=== PATIENT | female | born 1945 | race Caucasian/White ===

== ENCOUNTER 2019-07-30 10:17 | Emergency (ER) | payer MEDICARE, OTHER ==
[2019-07-30 10:25] VITALS: BP 122/62; PULSE 87; TEMP 98.2; BMI 33.6
--- NOTE | 2019-07-30 11:32 | PDOC ---
History of Present Illness - General Chief Complaint: Pain Stated Complaint: LT. LEG PAIN Time Seen by Provider: 07/30/19 10:31 - History of Present Illness Initial Comments: 07/30/19 11:23 CHIEF COMPLAINT: left hip pain HISTORY OF PRESENT ILLNESS: 74 yo F with hx of asthma and osteoarthritis presents to [facility] with sudden onset left hip pain since last night. She reports she woke up with hip pain and after sitting for long periods of time it is more painful to get up. She denies any recent trauma or injury, denies any fever, chills, body aches, or any new other symptoms. No recent travel or sick contacts. PAST MEDICAL HISTORY: Denies past medical history FAMILY HISTORY: Denies SOCIAL HISTORY: Denies tobacco, alcohol, illicit drug use. SURGICAL HISTORY: Denies ALLERGIES: No known drug allergies REVIEW OF SYSTEMS General/Constitutional: Denies fever or chills. Denies weakness, weight change. HEENT: Denies change in vision. Denies ear pain or discharge. Denies sore throat. Cardiovascular: Denies chest pain or shortness of breath. Respiratory: Denies cough, wheezing, or hemoptysis. Gastrointestinal: Denies nausea, vomiting, diarrhea or constipation. Denies rectal bleeding. Genitourinary: Denies dysuria, frequency, or change in urination. Musculoskeletal: Left hip pain. Skin and breasts: Denies rash or easy bruising. Neurologic: Denies headache, vertigo, loss of consciousness, or loss of sensation. Psychiatric: Denies depression or anxiety. PHYSICAL EXAM General Appearance: Well-appearing, appropriately dressed. No apparent distress , no intoxication. HEENT: EOMI, PERRLA, normal ENT inspection, normal voice, TMs normal, pharynx normal. No conjunctival pallor. No photophobia, scleral icterus. Neck: Supple. Trachea midline. No tenderness, rigidity, carotid bruit, stridor , lymphadenopathy, or thyromegaly. Respiratory/Chest: Lungs CTAB. No shortness of breath, chest tenderness, respiratory distress, accessory muscle use. No crackles, rales, rhonchi, stridor , wheezing, dullness Cardiovascular: RRR. S1, S2. No JVD, murmur, bradycardia, tachycardia. Vascular Pulses: Dorsalis-Pedis (R): 2+, Dorsalis-Pedis (L): 2+ Gastrointestinal/Abdominal: Normal bowel sounds. Abdomen soft, non-distended. No tenderness or rebound tenderness. No organomegaly, pulsatile mass, guarding , hernia, hepatomegaly, splenomegaly. Lymphatic: No adenopathy, tenderness. Musculoskeletal/Extremities: Full ROM to L hip and knee, no tenderness on palpation to L lower extremitie or hip. Normal inspection. FROM of all extremities, normal capillary refill. Pelvis Stable. No CVA tenderness. No tenderness to extremities, pedal edema, swelling, erythema or deformity. Integumentary: Appropriate color, dry, warm. No cyanosis, erythema, jaundice or rash Neurologic: lace roller II-XII intact. Fully oriented, alert. Appropriate mood/affect. Motor strength 5/5. No appreciable EOM palsy, facial droop or sensory deficit. Past History - Past Medical History Allergies/Adverse Reactions: Allergies Allergy/AdvReac Type Severity Reaction Status Date / Time No Known Drug Allergies Allergy Verified 07/30/19 10:19 Home Medications: Ambulatory Orders Albuterol Sulfate Inhaler - [Ventolin HFA Inhaler -] 1 - 2 inh PO Q4H PRN Simvastatin [Zocor] 10 mg PO HS 01/22/14 Sitagliptin Phosphate [Januvia] 100 mg PO DAILY 01/22/14 Albuterol Sulfate [Proair Hfa -] 1 - 2 inh PO BID PRN 07/31/14 Ferrous Gluconate [Iron] 325 mg PO DAILY 07/31/14 Meloxicam [Mobic] 15 mg PO DAILY 07/31/14 Prednisone [Deltasone] 20 mg PO DAILY #5 tablet 07/30/19 Asthma: Yes COPD: No Diabetes: Yes - Psycho Social/Smoking Cessation Hx Smoking History: Never smoked Have you smoked in the past 12 months: No Hx Alcohol Use: No Drug/Substance Use Hx: No *Physical Exam - Vital Signs Last Vital Signs Temp Pulse Resp BP Pulse Ox 98.2 F 87 16 122/62 98 07/30/19 10:20 07/30/19 10:20 07/30/19 10:20 07/30/19 10:20 07/30/19 10:20 ED Treatment Course - RADIOLOGY Radiology Studies Ordered: Category Date Time Status HIP & PELVIS-LEFT [RAD] Stat Radiology 07/30/19 10:35 Completed Medical Decision Making - Medical Decision Making 07/30/19 11:32 74 yo F with hx of osteoarthritis presents to [facility] with sudden onset left hip pain since last night. -hip x-ray x-ray negative for acute pathology. -prednisone 20 mg f/u with ortho Discharge - Discharge Information Problems reviewed: Yes Clinical Impression/Diagnosis: Osteoarthritis Qualifiers: Osteoarthritis location: hip Osteoarthritis type: unspecified Laterality: left Qualified Code(s): M16.12 - Unilateral primary osteoarthritis, left hip Condition: Stable Disposition: HOME - Admission No - Additional Discharge Information Prescriptions: Prednisone [Deltasone] 20 mg PO DAILY #5 tablet - Follow up/Referral Referrals: Mau Heard [Primary Care Provider] - - Patient Discharge Instructions Patient Printed Discharge Instructions: DI for Osteoarthritis - Post Discharge Activity
[2019-07-30] MEDS ORDERED: predniSONE 20 MG TABLET (UD) PO ONE (11:41)
[2019-07-30] MEDS ORDERED: predniSONE 20 MG TABLET (UD) ONE (11:42)
== END 2019-07-30 12:06 | disposition home or self-care (01) ==
LOC: JERFT 10:17
DX: M16.12 Unilateral primary osteoarthritis, left hip (principal); J45.909 Unspecified asthma, uncomplicated; E11.9 Type 2 diabetes mellitus without complications; Z79.84 Long term (current) use of oral hypoglycemic drugs
CPT/HCPCS: 73523-TC-FY; 99281-25

== ENCOUNTER 2020-08-06 18:16 | Inpatient (IN) | payer OTHER ==
[2020-08-06] MEDS ORDERED: LACTATED RINGERS SOLUTION 1000 ML INFUS.BAG IV ONE ×2 (20:28→23:44)
[2020-08-06 21:03] LABS: BASO % 0.2 % (0-2.0); HEMATOCRIT 43.3 % (32.4-45.2); HEMOGLOBIN 14.3 GM/dL (10.7-15.3); LYMPH % 12.5 % (8-40); MCHC 33.1 g/dl (32.0-36.0); MEAN CELL VOLUME 81.6 fl (80-96); MEAN PLT VOLUME 9.6 fl (7.5-11.1); MONO % 5.5 % (3.8-10.2); NEUT % 81.8 % (42.8-82.8); PLATELET COUNT 189 K/MM3 (134-434); RBC 5.31 M/mm3 (3.60-5.2); RDW 15.3 % (11.6-15.6); WHITE BLOOD COUNT 6.6 K/mm3 (4.0-10.0)
[2020-08-06 21:13] LABS: INR 1.09 (0.83-1.09); PROTHROMBIN TIME (PATIENT) 13.4 SEC (9.7-13.0)
[2020-08-06 21:16] LABS: ACTIVATED PTT 28.9 SECONDS (25.2-36.5)
[2020-08-06 21:26] LABS: CHLORIDE 102 mmol/L (98-107); SODIUM 135 mmol/L (136-145)
[2020-08-06 21:29] LABS: ANION GAP 8 MMOL/L (8-16); BLOOD UREA NITROGEN 20.6 mg/dL (7-18); CALCIUM 8.4 mg/dL (8.5-10.1); CO2 26 mmol/L (21-32)
[2020-08-06 21:30] LABS: GLUCOSE,RANDOM 127 mg/dL (74-106)
[2020-08-06 21:32] LABS: BILIRUBIN,DIRECT 0.1 mg/dL (0.0-0.2); CREATININE 0.9 mg/dL (0.55-1.3); SGOT/AST 34 U/L (15-37); SGPT/ALT 29 U/L (13-61)
[2020-08-06 21:34] LABS: BILIRUBIN,TOTAL 0.3 mg/dL (0.2-1); TOT PROT 7.1 g/dl (6.4-8.2)
[2020-08-06 21:35] LABS: ALK PHOS 45 U/L (45-117)
[2020-08-06] MEDS ORDERED: DEXAMETHASONE SOD PHOSPHATE 10 MG/1 ML VIAL IVPUSH ONE (21:38)
[2020-08-06] MEDS ORDERED: DEXAMETHASONE SOD PHOSPHATE 4 MG/1 ML VIAL ONE (21:54)
[2020-08-06 22:25] LABS: LDH 306 U/L (84-246)
[2020-08-06] MEDS ORDERED: ACETAMINOPHEN 1000 MG/100 ML BAG IVPB ONE (23:43)
[2020-08-06] MEDS ORDERED: ACETAMINOPHEN INJECTION 100 ML IVPB ONE (23:47)
[2020-08-07] MEDS ORDERED: ACETAMINOPHEN 325 MG TABLET (FP) PO PRN (00:40)
[2020-08-07] MEDS ORDERED: CEFTRIAXONE 1,000 MG in DEXTROSE 5%-WATER - 50 ML IVPB ONE (00:48)
[2020-08-07] MEDS ORDERED: AZITHROMYCIN IVPB 500 MG/250 ML BAG IVPB ONE (01:19)
[2020-08-07] MEDS ORDERED: CEFTRIAXONE 1 GM/50 ML BAG ONE (01:19)
[2020-08-07] MEDS: CEFTRIAXONE 1 GM in DEXTROSE 5%-WATER - 50 ML IVPB SCH ×2 (01:30→10:19)
[2020-08-07] MEDS: AZITHROMYCIN IVPB 500 MG/250 ML BAG IVPB SCH ×2 (01:47→10:19)
[2020-08-07] MEDS: INSULIN SLIDING SCALE (NOVOLOG) 1 VIAL SQ SCH ×4 (06:55→21:23)
[2020-08-07 07:04] LABS: BASO % 0.2 % (0-2.0); HEMOGLOBIN 13.5 GM/dL (10.7-15.3); LYMPH % 14.2 % (8-40); MCH 26.2 pg (25.7-33.7); MCHC 32.3 g/dl (32.0-36.0); MEAN CELL VOLUME 81.2 fl (80-96); MONO % 4.2 % (3.8-10.2); NEUT % 81.4 % (42.8-82.8); PLATELET COUNT 169 K/MM3 (134-434); RBC 5.16 M/mm3 (3.60-5.2); RDW 15.3 % (11.6-15.6); WHITE BLOOD COUNT 6.5 K/mm3 (4.0-10.0)
[2020-08-07 07:22] LABS: CALCIUM 8.5 mg/dL (8.5-10.1)
[2020-08-07 07:23] LABS: ALBUMIN 2.6 g/dl (3.4-5.0); BLOOD UREA NITROGEN 18.8 mg/dL (7-18); MAGNESIUM 2.1 mg/dL (1.8-2.4)
[2020-08-07 07:25] LABS: CREATININE 0.8 mg/dL (0.55-1.3)
[2020-08-07 07:26] LABS: PHOSPHOROUS 4.4 mg/dL (2.5-4.9)
[2020-08-07 07:27] LABS: BILIRUBIN,TOTAL 0.3 mg/dL (0.2-1); TOT PROT 6.6 g/dl (6.4-8.2)
[2020-08-07 08:53] LABS: EPI CELLS 10 /uL (0-25.1); HYALINE CASTS 2 /uL (0-3.1); PH,URINE 5.5 (5.0-8.0); URINE APPEARANCE CLOUDY; URINE BACTERIA 42 /uL (0-1359); URINE BILIRUBIN NEGATIVE (NEGATIVE); URINE COLOR YELLOW; URINE GLUCOSE (UA) NEGATIVE (NEGATIVE); URINE KETONE NEGATIVE (NEGATIVE); URINE LEUK ESTERASE NEGATIVE (NEGATIVE); URINE NITRITE NEGATIVE (NEGATIVE); URINE PROTEIN 1+ (NEGATIVE); URINE RBC 9 /uL (0-23.9); URINE UROBILINOGEN 0.2 mg/dL (0.2-1.0); URINE WBC 6 /uL (0-25.8)
[2020-08-07] MEDS ORDERED: ASCORBIC ACID 500 MG TABLET (FP) PO SCH (10:00)
[2020-08-07] MEDS ORDERED: ENOXAPARIN NA (PORCINE) 40 MG/0.4 ML DISP.SYRIN SQ SCH (10:00)
[2020-08-07] MEDS ORDERED: DEXAMETHASONE SOD PHOSPHATE 4 MG/1 ML VIAL IVPUSH SCH (10:00)
[2020-08-07] MEDS: ZINC SULFATE 220 MG CAPSULE (FP) PO SCH (10:19)
[2020-08-07] MEDS: ENOXAPARIN NA (PORCINE) 80 MG/0.8 ML DISP.SYRIN SQ SCH ×2 (10:20→21:19)
[2020-08-07] MEDS: ASCORBIC ACID 500 MG TABLET (FP) PO SCH ×2 (10:20→21:18)
[2020-08-07] MEDS: CHOLECALCIFEROL (VIT D3) 1,000 UNIT (25 MCG) TABLET PO SCH (10:20)
[2020-08-07] MEDS: DEXAMETHASONE SOD PHOSPHATE 4 MG/1 ML VIAL IVPUSH SCH (10:20)
[2020-08-07] MEDS ORDERED: ALBUTEROL SO4 HFA INHALER IH PRN (11:00)
[2020-08-07] MEDS: RAMIPRIL 5 MG CAPSULE PO SCH (12:05)
[2020-08-07] MEDS: ASPIRIN 81 MG CHEWABLE TABLETS PO SCH (12:06)
[2020-08-07] MEDS: ATORVASTATIN CA 10 MG TABLET (FP) PO SCH (21:18)
[2020-08-07] MEDS: ACETAMINOPHEN 325 MG TABLET (FP) PO PRN (22:10)
[2020-08-07] MEDS: ALBUTEROL SO4 HFA INHALER IH PRN (22:17)
[2020-08-08] MEDS: INSULIN SLIDING SCALE (NOVOLOG) 1 VIAL SQ SCH ×4 (06:40→22:11)
[2020-08-08 07:30] LABS: HEMATOCRIT 44.4 % (32.4-45.2); HEMOGLOBIN 14.4 GM/dL (10.7-15.3); MCH 26.6 pg (25.7-33.7); MCHC 32.5 g/dl (32.0-36.0); MEAN CELL VOLUME 81.9 fl (80-96); MEAN PLT VOLUME 9.3 fl (7.5-11.1); PLATELET COUNT 217 K/MM3 (134-434); RBC 5.42 M/mm3 (3.60-5.2); RDW 15.6 % (11.6-15.6)
[2020-08-08 08:03] LABS: BLOOD UREA NITROGEN 20.5 mg/dL (7-18)
[2020-08-08 08:06] LABS: CREATININE 0.7 mg/dL (0.55-1.3); PHOSPHOROUS 3.3 mg/dL (2.5-4.9)
[2020-08-08] MEDS ORDERED: cefTRIAXone SODIUM 1 GM VIAL ONE (08:47)
[2020-08-08] MEDS ORDERED: DEXTROSE 5%-WATER - 50 ML IVPB ONE (08:47)
[2020-08-08] MEDS: CEFTRIAXONE 1 GM in DEXTROSE 5%-WATER - 50 ML IVPB SCH ×2 (09:27→09:56)
[2020-08-08] MEDS: ASPIRIN 81 MG CHEWABLE TABLETS PO SCH (09:27)
[2020-08-08] MEDS: ENOXAPARIN NA (PORCINE) 80 MG/0.8 ML DISP.SYRIN SQ SCH ×2 (09:27→22:11)
[2020-08-08] MEDS: DEXAMETHASONE SOD PHOSPHATE 4 MG/1 ML VIAL IVPUSH SCH (09:27)
[2020-08-08] MEDS: RAMIPRIL 5 MG CAPSULE PO SCH (09:27)
[2020-08-08] MEDS: ASCORBIC ACID 500 MG TABLET (FP) PO SCH ×2 (09:27→22:11)
[2020-08-08] MEDS: ZINC SULFATE 220 MG CAPSULE (FP) PO SCH (09:27)
[2020-08-08] MEDS: AZITHROMYCIN IVPB 500 MG/250 ML BAG IVPB SCH ×2 (09:28→09:56)
[2020-08-08] MEDS: CHOLECALCIFEROL (VIT D3) 1,000 UNIT (25 MCG) TABLET PO SCH (09:28)
[2020-08-08] MEDS ORDERED: INSULIN (NOVOLOG) ASPART 100 UNITS/ML 10ML VIAL ONE (11:17)
[2020-08-08 12:37] LABS: PLATELET ESTIMATE NORMAL
[2020-08-08] MEDS ORDERED: REMDESIVIR 200 MG in SODIUM CHLORIDE 210 ML IVPB ONE (15:00)
[2020-08-08] MEDS: ACETAMINOPHEN 325 MG TABLET (FP) PO PRN (22:11)
[2020-08-08] MEDS: ATORVASTATIN CA 10 MG TABLET (FP) PO SCH (22:43)
[2020-08-09] MEDS: INSULIN SLIDING SCALE (NOVOLOG) 1 VIAL SQ SCH ×4 (06:39→23:08)
[2020-08-09 06:58] LABS: BASO % 0.1 % (0-2.0); HEMOGLOBIN 13.4 GM/dL (10.7-15.3); LYMPH % 17.3 % (8-40); MCH 26.5 pg (25.7-33.7); MCHC 32.8 g/dl (32.0-36.0); MEAN CELL VOLUME 80.8 fl (80-96); MEAN PLT VOLUME 8.9 fl (7.5-11.1); NEUT % 77.6 % (42.8-82.8); PLATELET COUNT 223 K/MM3 (134-434); RBC 5.07 M/mm3 (3.60-5.2); RDW 15.6 % (11.6-15.6); WHITE BLOOD COUNT 11.3 K/mm3 (4.0-10.0)
[2020-08-09 07:34] LABS: BLOOD UREA NITROGEN 16.8 mg/dL (7-18)
[2020-08-09 07:35] LABS: CALCIUM 8.9 mg/dL (8.5-10.1)
[2020-08-09 07:36] LABS: ALBUMIN 2.6 g/dl (3.4-5.0)
[2020-08-09 07:39] LABS: BILIRUBIN,TOTAL 0.4 mg/dL (0.2-1); CREATININE 0.6 mg/dL (0.55-1.3); TOT PROT 6.7 g/dl (6.4-8.2)
[2020-08-09] MEDS: ZINC SULFATE 220 MG CAPSULE (FP) PO SCH (09:50)
[2020-08-09] MEDS: RAMIPRIL 5 MG CAPSULE PO SCH (09:50)
[2020-08-09] MEDS: ENOXAPARIN NA (PORCINE) 80 MG/0.8 ML DISP.SYRIN SQ SCH ×2 (09:51→23:08)
[2020-08-09] MEDS: DEXAMETHASONE SOD PHOSPHATE 4 MG/1 ML VIAL IVPUSH SCH (09:51)
[2020-08-09] MEDS: ASPIRIN 81 MG CHEWABLE TABLETS PO SCH (09:51)
[2020-08-09] MEDS: ASCORBIC ACID 500 MG TABLET (FP) PO SCH ×2 (09:52→23:09)
[2020-08-09] MEDS: CHOLECALCIFEROL (VIT D3) 1,000 UNIT (25 MCG) TABLET PO SCH (09:52)
[2020-08-09] MEDS ORDERED: REMDESIVIR 100 MG in SODIUM CHLORIDE 230 ML IVPB SCH (14:44)
[2020-08-09] MEDS: REMDESIVIR 100 MG in SODIUM CHLORIDE 230 ML IVPB SCH (16:43)
[2020-08-09] MEDS: ATORVASTATIN CA 10 MG TABLET (FP) PO SCH (23:08)
[2020-08-09] MEDS: ACETAMINOPHEN 325 MG TABLET (FP) PO PRN (23:09)
[2020-08-10] MEDS: INSULIN SLIDING SCALE (NOVOLOG) 1 VIAL SQ SCH ×4 (06:03→22:05)
[2020-08-10 07:15] LABS: BASO % 0.1 % (0-2.0); HEMATOCRIT 41.6 % (32.4-45.2); HEMOGLOBIN 13.7 GM/dL (10.7-15.3); LYMPH % 12.3 % (8-40); MCH 26.4 pg (25.7-33.7); MCHC 32.9 g/dl (32.0-36.0); MEAN CELL VOLUME 80.3 fl (80-96); MEAN PLT VOLUME 8.7 fl (7.5-11.1); MONO % 8.7 % (3.8-10.2); NEUT % 78.9 % (42.8-82.8); PLATELET COUNT 247 K/MM3 (134-434); RBC 5.18 M/mm3 (3.60-5.2); RDW 15.3 % (11.6-15.6)
[2020-08-10 08:01] LABS: CALCIUM 8.6 mg/dL (8.5-10.1)
[2020-08-10 08:02] LABS: ALBUMIN 2.5 g/dl (3.4-5.0); BLOOD UREA NITROGEN 21.2 mg/dL (7-18)
[2020-08-10 08:03] LABS: CREATININE 0.5 mg/dL (0.55-1.3)
[2020-08-10 08:04] LABS: BILIRUBIN,TOTAL 0.4 mg/dL (0.2-1); TOT PROT 6.6 g/dl (6.4-8.2)
[2020-08-10] MEDS: RAMIPRIL 5 MG CAPSULE PO SCH (11:00)
[2020-08-10] MEDS: DEXAMETHASONE SOD PHOSPHATE 4 MG/1 ML VIAL IVPUSH SCH (11:00)
[2020-08-10] MEDS: ZINC SULFATE 220 MG CAPSULE (FP) PO SCH (11:00)
[2020-08-10] MEDS: ASCORBIC ACID 500 MG TABLET (FP) PO SCH ×2 (11:01→21:56)
[2020-08-10] MEDS: ENOXAPARIN NA (PORCINE) 80 MG/0.8 ML DISP.SYRIN SQ SCH ×2 (11:01→21:56)
[2020-08-10] MEDS: ASPIRIN 81 MG CHEWABLE TABLETS PO SCH (11:01)
[2020-08-10] MEDS: CHOLECALCIFEROL (VIT D3) 1,000 UNIT (25 MCG) TABLET PO SCH (11:01)
[2020-08-10] MEDS: PANTOPRAZOLE 40 MG TABLET PO SCH (14:23)
[2020-08-10] MEDS: REMDESIVIR 100 MG in SODIUM CHLORIDE 230 ML IVPB SCH (16:54)
[2020-08-10] MEDS: ATORVASTATIN CA 10 MG TABLET (FP) PO SCH (21:56)
[2020-08-11] MEDS: INSULIN SLIDING SCALE (NOVOLOG) 1 VIAL SQ SCH ×4 (06:35→22:32)
[2020-08-11] MEDS ORDERED: INSULIN (NOVOLOG) ASPART 100 UNITS/ML 10ML VIAL ONE (07:14)
[2020-08-11] MEDS: PANTOPRAZOLE 40 MG TABLET PO SCH (10:18)
[2020-08-11] MEDS: RAMIPRIL 5 MG CAPSULE PO SCH (10:18)
[2020-08-11] MEDS: ZINC SULFATE 220 MG CAPSULE (FP) PO SCH (10:18)
[2020-08-11] MEDS: DEXAMETHASONE SOD PHOSPHATE 4 MG/1 ML VIAL IVPUSH SCH (10:18)
[2020-08-11] MEDS: ENOXAPARIN NA (PORCINE) 80 MG/0.8 ML DISP.SYRIN SQ SCH ×2 (10:19→22:15)
[2020-08-11] MEDS: ASCORBIC ACID 500 MG TABLET (FP) PO SCH ×2 (10:19→22:15)
[2020-08-11] MEDS: ASPIRIN 81 MG CHEWABLE TABLETS PO SCH (10:19)
[2020-08-11] MEDS: CHOLECALCIFEROL (VIT D3) 1,000 UNIT (25 MCG) TABLET PO SCH (10:20)
[2020-08-11] MEDS ORDERED: PT OWN MED DRAWER 7, Y5N ONE (16:20)
[2020-08-11] MEDS: REMDESIVIR 100 MG in SODIUM CHLORIDE 230 ML IVPB SCH (17:58)
[2020-08-11] MEDS: FAMOTIDINE 20 MG TABLET PO SCH (22:15)
[2020-08-11] MEDS: ATORVASTATIN CA 10 MG TABLET (FP) PO SCH (22:15)
[2020-08-12] MEDS: INSULIN SLIDING SCALE (NOVOLOG) 1 VIAL SQ SCH ×4 (06:31→22:53)
[2020-08-12 07:24] LABS: BASO % 0.1 % (0-2.0); HEMATOCRIT 39.9 % (32.4-45.2); LYMPH % 8.8 % (8-40); MCH 26.5 pg (25.7-33.7); MCHC 32.5 g/dl (32.0-36.0); MEAN CELL VOLUME 81.6 fl (80-96); MEAN PLT VOLUME 9.8 fl (7.5-11.1); MONO % 10.5 % (3.8-10.2); NEUT % 80.6 % (42.8-82.8); PLATELET COUNT 313 K/MM3 (134-434); RBC 4.89 M/mm3 (3.60-5.2); RDW 15.2 % (11.6-15.6); WHITE BLOOD COUNT 14.1 K/mm3 (4.0-10.0)
[2020-08-12 08:02] LABS: ALBUMIN 2.4 g/dl (3.4-5.0); BLOOD UREA NITROGEN 15.8 mg/dL (7-18); CALCIUM 8.3 mg/dL (8.5-10.1); MAGNESIUM 2.2 mg/dL (1.8-2.4)
[2020-08-12 08:05] LABS: CREATININE 0.5 mg/dL (0.55-1.3); PHOSPHOROUS 3.1 mg/dL (2.5-4.9)
[2020-08-12 08:07] LABS: BILIRUBIN,TOTAL 0.7 mg/dL (0.2-1)
[2020-08-12] MEDS: ALBUTEROL SO4 HFA INHALER IH PRN (08:30)
[2020-08-12] MEDS: ASCORBIC ACID 500 MG TABLET (FP) PO SCH ×2 (09:50→22:42)
[2020-08-12] MEDS: ZINC SULFATE 220 MG CAPSULE (FP) PO SCH (09:50)
[2020-08-12] MEDS: APIXABAN 5 MG TABLET PO SCH ×2 (09:50→22:42)
[2020-08-12] MEDS: DEXAMETHASONE SOD PHOSPHATE 4 MG/1 ML VIAL IVPUSH SCH (09:50)
[2020-08-12] MEDS: FAMOTIDINE 20 MG TABLET PO SCH ×2 (09:50→22:42)
[2020-08-12] MEDS: CHOLECALCIFEROL (VIT D3) 1,000 UNIT (25 MCG) TABLET PO SCH (09:51)
[2020-08-12] MEDS: ASPIRIN 81 MG CHEWABLE TABLETS PO SCH (09:51)
[2020-08-12] MEDS: RAMIPRIL 5 MG CAPSULE PO SCH (09:51)
[2020-08-12] MEDS ORDERED: INSULIN (NOVOLOG) ASPART 100 UNITS/ML 10ML VIAL ONE (12:05)
[2020-08-12] MEDS: ACETAMINOPHEN 325 MG TABLET (FP) PO PRN ×2 (12:10→22:42)
[2020-08-12] MEDS: REMDESIVIR 100 MG in SODIUM CHLORIDE 230 ML IVPB SCH (16:54)
[2020-08-12] MEDS: ATORVASTATIN CA 10 MG TABLET (FP) PO SCH (22:42)
[2020-08-13] MEDS: INSULIN SLIDING SCALE (NOVOLOG) 1 VIAL SQ SCH ×4 (06:36→21:56)
[2020-08-13 06:40] LABS: BASO % 0.3 % (0-2.0); EOS % 0.2 % (0-4.5); HEMATOCRIT 40.7 % (32.4-45.2); LYMPH % 8.4 % (8-40); MCH 26.2 pg (25.7-33.7); MEAN CELL VOLUME 81.7 fl (80-96); MONO % 6.5 % (3.8-10.2); NEUT % 84.6 % (42.8-82.8); PLATELET COUNT 339 K/MM3 (134-434); RBC 4.98 M/mm3 (3.60-5.2); RDW 15.3 % (11.6-15.6); WHITE BLOOD COUNT 16.6 K/mm3 (4.0-10.0)
[2020-08-13 07:06] LABS: ALBUMIN 2.3 g/dl (3.4-5.0); CALCIUM 8.5 mg/dL (8.5-10.1)
[2020-08-13 07:07] LABS: BLOOD UREA NITROGEN 18.6 mg/dL (7-18); MAGNESIUM 1.9 mg/dL (1.8-2.4)
[2020-08-13 07:10] LABS: CREATININE 0.5 mg/dL (0.55-1.3); PHOSPHOROUS 3.4 mg/dL (2.5-4.9)
[2020-08-13 07:11] LABS: BILIRUBIN,TOTAL 0.6 mg/dL (0.2-1)
[2020-08-13] MEDS: ACETAMINOPHEN 325 MG TABLET (FP) PO PRN (10:00)
[2020-08-13] MEDS: RAMIPRIL 5 MG CAPSULE PO SCH (10:01)
[2020-08-13] MEDS: APIXABAN 5 MG TABLET PO SCH ×2 (10:01→21:33)
[2020-08-13] MEDS: FAMOTIDINE 20 MG TABLET PO SCH ×2 (10:01→21:34)
[2020-08-13] MEDS: ASCORBIC ACID 500 MG TABLET (FP) PO SCH ×2 (10:01→21:34)
[2020-08-13] MEDS: ASPIRIN 81 MG CHEWABLE TABLETS PO SCH (10:02)
[2020-08-13] MEDS: CHOLECALCIFEROL (VIT D3) 1,000 UNIT (25 MCG) TABLET PO SCH (10:02)
[2020-08-13] MEDS: ZINC SULFATE 220 MG CAPSULE (FP) PO SCH (10:02)
[2020-08-13] MEDS: DEXAMETHASONE SOD PHOSPHATE 4 MG/1 ML VIAL IVPUSH SCH (10:02)
[2020-08-13] MEDS ORDERED: REMDESIVIR 100 MG in SODIUM CHLORIDE 230 ML IVPB ONE (16:00)
[2020-08-13] MEDS: ATORVASTATIN CA 10 MG TABLET (FP) PO SCH (21:33)
[2020-08-14] MEDS: INSULIN SLIDING SCALE (NOVOLOG) 1 VIAL SQ SCH ×4 (06:53→21:07)
[2020-08-14 07:11] LABS: BASO % 0.2 % (0-2.0); EOS % 0.2 % (0-4.5); HEMATOCRIT 39.2 % (32.4-45.2); HEMOGLOBIN 12.7 GM/dL (10.7-15.3); LYMPH % 6.7 % (8-40); MCH 26.4 pg (25.7-33.7); MCHC 32.5 g/dl (32.0-36.0); MEAN CELL VOLUME 81.2 fl (80-96); MEAN PLT VOLUME 9.2 fl (7.5-11.1); MONO % 5.2 % (3.8-10.2); NEUT % 87.7 % (42.8-82.8); PLATELET COUNT 336 K/MM3 (134-434); RBC 4.82 M/mm3 (3.60-5.2); RDW 15.1 % (11.6-15.6); WHITE BLOOD COUNT 17.2 K/mm3 (4.0-10.0)
[2020-08-14 07:33] LABS: ALBUMIN 2.2 g/dl (3.4-5.0)
[2020-08-14 07:34] LABS: BLOOD UREA NITROGEN 16.5 mg/dL (7-18); MAGNESIUM 1.8 mg/dL (1.8-2.4); PHOSPHOROUS 3.2 mg/dL (2.5-4.9)
[2020-08-14 07:36] LABS: BILIRUBIN,TOTAL 0.7 mg/dL (0.2-1); TOT PROT 5.9 g/dl (6.4-8.2)
[2020-08-14 07:37] LABS: CREATININE 0.5 mg/dL (0.55-1.3)
[2020-08-14] MEDS ORDERED: PT OWN MED DRAWER 7, Y5N ONE ×2 (09:38→16:29)
[2020-08-14] MEDS: RAMIPRIL 5 MG CAPSULE PO SCH (10:35)
[2020-08-14] MEDS: ZINC SULFATE 220 MG CAPSULE (FP) PO SCH (10:35)
[2020-08-14] MEDS: DEXAMETHASONE SOD PHOSPHATE 4 MG/1 ML VIAL IVPUSH SCH (10:35)
[2020-08-14] MEDS: APIXABAN 5 MG TABLET PO SCH ×2 (10:36→21:06)
[2020-08-14] MEDS: ASPIRIN 81 MG CHEWABLE TABLETS PO SCH (10:36)
[2020-08-14] MEDS: FAMOTIDINE 20 MG TABLET PO SCH ×2 (10:36→21:06)
[2020-08-14] MEDS: CHOLECALCIFEROL (VIT D3) 1,000 UNIT (25 MCG) TABLET PO SCH (10:36)
[2020-08-14] MEDS: ASCORBIC ACID 500 MG TABLET (FP) PO SCH ×2 (10:36→22:00)
[2020-08-14] MEDS ORDERED: REMDESIVIR 100 MG in SODIUM CHLORIDE 230 ML IVPB SCH (15:09)
[2020-08-14] MEDS: REMDESIVIR 100 MG in SODIUM CHLORIDE 230 ML IVPB SCH (17:58)
[2020-08-14] MEDS: ACETAMINOPHEN 325 MG TABLET (FP) PO PRN (20:43)
[2020-08-14] MEDS: ATORVASTATIN CA 10 MG TABLET (FP) PO SCH (21:07)
[2020-08-15 06:48] LABS: BASO % 0.2 % (0-2.0); EOS % 0.1 % (0-4.5); HEMATOCRIT 38.5 % (32.4-45.2); HEMOGLOBIN 12.4 GM/dL (10.7-15.3); LYMPH % 4.4 % (8-40); MCH 26.1 pg (25.7-33.7); MCHC 32.2 g/dl (32.0-36.0); MEAN CELL VOLUME 80.9 fl (80-96); MEAN PLT VOLUME 9.4 fl (7.5-11.1); MONO % 3.7 % (3.8-10.2); NEUT % 91.6 % (42.8-82.8); PLATELET COUNT 348 K/MM3 (134-434); RBC 4.76 M/mm3 (3.60-5.2); RDW 15.3 % (11.6-15.6); WHITE BLOOD COUNT 15.7 K/mm3 (4.0-10.0)
[2020-08-15 07:03] LABS: BLOOD UREA NITROGEN 16.6 mg/dL (7-18); CALCIUM 8.2 mg/dL (8.5-10.1)
[2020-08-15 07:06] LABS: CREATININE 0.5 mg/dL (0.55-1.3)
[2020-08-15 07:07] LABS: PHOSPHOROUS 3.5 mg/dL (2.5-4.9)
[2020-08-15] MEDS: INSULIN SLIDING SCALE (NOVOLOG) 1 VIAL SQ SCH ×4 (07:07→22:00)
[2020-08-15 07:08] LABS: BILIRUBIN,TOTAL 0.4 mg/dL (0.2-1); TOT PROT 5.6 g/dl (6.4-8.2)
[2020-08-15 09:00] LABS: ANISOCYTOSIS 0; MACROCYTOSIS 0; PLATELET ESTIMATE NORMAL
[2020-08-15] MEDS: FAMOTIDINE 20 MG TABLET PO SCH ×2 (09:33→22:21)
[2020-08-15] MEDS: ASPIRIN 81 MG CHEWABLE TABLETS PO SCH (09:33)
[2020-08-15] MEDS: RAMIPRIL 5 MG CAPSULE PO SCH (09:34)
[2020-08-15] MEDS: DEXAMETHASONE SOD PHOSPHATE 4 MG/1 ML VIAL IVPUSH SCH (09:34)
[2020-08-15] MEDS: ASCORBIC ACID 500 MG TABLET (FP) PO SCH ×2 (09:34→22:19)
[2020-08-15] MEDS: APIXABAN 5 MG TABLET PO SCH ×2 (09:34→22:36)
[2020-08-15] MEDS: ZINC SULFATE 220 MG CAPSULE (FP) PO SCH (09:34)
[2020-08-15] MEDS: CHOLECALCIFEROL (VIT D3) 1,000 UNIT (25 MCG) TABLET PO SCH (09:35)
[2020-08-15] MEDS: REMDESIVIR 100 MG in SODIUM CHLORIDE 230 ML IVPB SCH (16:39)
[2020-08-15] MEDS: ACETAMINOPHEN 325 MG TABLET (FP) PO PRN (22:19)
[2020-08-15] MEDS: ATORVASTATIN CA 10 MG TABLET (FP) PO SCH (22:22)
[2020-08-16] MEDS: INSULIN SLIDING SCALE (NOVOLOG) 1 VIAL SQ SCH ×4 (07:41→21:19)
[2020-08-16 08:17] LABS: BASO % 0.3 % (0-2.0); EOS % 0.2 % (0-4.5); HEMATOCRIT 38.6 % (32.4-45.2); HEMOGLOBIN 12.5 GM/dL (10.7-15.3); LYMPH % 3.3 % (8-40); MCH 26.2 pg (25.7-33.7); MCHC 32.3 g/dl (32.0-36.0); MEAN PLT VOLUME 9.2 fl (7.5-11.1); MONO % 3.7 % (3.8-10.2); NEUT % 92.5 % (42.8-82.8); PLATELET COUNT 339 K/MM3 (134-434); RBC 4.77 M/mm3 (3.60-5.2); RDW 15.1 % (11.6-15.6); WHITE BLOOD COUNT 17.9 K/mm3 (4.0-10.0)
[2020-08-16 08:37] LABS: BLOOD UREA NITROGEN 15.8 mg/dL (7-18); CALCIUM 8.5 mg/dL (8.5-10.1)
[2020-08-16 08:40] LABS: CREATININE 0.5 mg/dL (0.55-1.3)
[2020-08-16 10:35] LABS: ANISOCYTOSIS 1+; MACROCYTOSIS 1+; PLATELET ESTIMATE NORMAL
[2020-08-16] MEDS: DEXAMETHASONE SOD PHOSPHATE 4 MG/1 ML VIAL IVPUSH SCH (10:57)
[2020-08-16] MEDS: ZINC SULFATE 220 MG CAPSULE (FP) PO SCH (10:57)
[2020-08-16] MEDS: FAMOTIDINE 20 MG TABLET PO SCH ×2 (10:58→21:10)
[2020-08-16] MEDS: APIXABAN 5 MG TABLET PO SCH ×2 (10:58→21:09)
[2020-08-16] MEDS: ASPIRIN 81 MG CHEWABLE TABLETS PO SCH (10:58)
[2020-08-16] MEDS: ASCORBIC ACID 500 MG TABLET (FP) PO SCH ×2 (10:58→21:09)
[2020-08-16] MEDS: CHOLECALCIFEROL (VIT D3) 1,000 UNIT (25 MCG) TABLET PO SCH (10:59)
[2020-08-16] MEDS: RAMIPRIL 5 MG CAPSULE PO SCH (10:59)
[2020-08-16] MEDS ORDERED: INSULIN (NOVOLOG) ASPART 100 UNITS/ML 10ML VIAL ONE (16:44)
[2020-08-16] MEDS: REMDESIVIR 100 MG in SODIUM CHLORIDE 230 ML IVPB SCH (17:18)
[2020-08-16] MEDS: CHLORHEXIDINE GLUCONATE 4% CLEANSER FOR DECOLONIZATION TP SCH (21:06)
[2020-08-16] MEDS: MUPIROCIN 2% TOPICAL OINTMENT FOR DECOLONIZATION NS SCH (21:07)
[2020-08-16] MEDS: ATORVASTATIN CA 10 MG TABLET (FP) PO SCH (21:09)
[2020-08-16] MEDS ORDERED: PCA PUMP NR ONE (23:17)
[2020-08-17] MEDS: INSULIN SLIDING SCALE (NOVOLOG) 1 VIAL SQ SCH ×4 (06:45→21:19)
[2020-08-17 07:35] LABS: BASO % 0.4 % (0-2.0); EOS % 0.3 % (0-4.5); HEMATOCRIT 39.4 % (32.4-45.2); HEMOGLOBIN 12.8 GM/dL (10.7-15.3); LYMPH % 5.6 % (8-40); MCH 26.1 pg (25.7-33.7); MCHC 32.4 g/dl (32.0-36.0); MEAN CELL VOLUME 80.6 fl (80-96); MEAN PLT VOLUME 9.2 fl (7.5-11.1); MONO % 4.1 % (3.8-10.2); NEUT % 89.6 % (42.8-82.8); PLATELET COUNT 343 K/MM3 (134-434); RBC 4.89 M/mm3 (3.60-5.2); RDW 15.6 % (11.6-15.6); WHITE BLOOD COUNT 17.8 K/mm3 (4.0-10.0)
[2020-08-17 08:02] LABS: BLOOD UREA NITROGEN 15.1 mg/dL (7-18)
[2020-08-17 08:03] LABS: CALCIUM 8.5 mg/dL (8.5-10.1); MAGNESIUM 2.2 mg/dL (1.8-2.4)
[2020-08-17 08:06] LABS: CREATININE 0.5 mg/dL (0.55-1.3); PHOSPHOROUS 3.7 mg/dL (2.5-4.9)
[2020-08-17] MEDS: DEXAMETHASONE SOD PHOSPHATE 4 MG/1 ML VIAL IVPUSH SCH (09:01)
[2020-08-17] MEDS: APIXABAN 5 MG TABLET PO SCH ×2 (09:02→21:08)
[2020-08-17] MEDS: ASPIRIN 81 MG CHEWABLE TABLETS PO SCH (09:02)
[2020-08-17] MEDS: ASCORBIC ACID 500 MG TABLET (FP) PO SCH ×2 (09:02→21:08)
[2020-08-17] MEDS: FAMOTIDINE 20 MG TABLET PO SCH ×2 (09:03→21:08)
[2020-08-17] MEDS: CHOLECALCIFEROL (VIT D3) 1,000 UNIT (25 MCG) TABLET PO SCH (09:03)
[2020-08-17] MEDS: ZINC SULFATE 220 MG CAPSULE (FP) PO SCH (09:03)
[2020-08-17] MEDS: MUPIROCIN 2% TOPICAL OINTMENT FOR DECOLONIZATION NS SCH ×2 (09:03→21:08)
[2020-08-17] MEDS: RAMIPRIL 5 MG CAPSULE PO SCH (09:03)
[2020-08-17] MEDS ORDERED: PT OWN MED DRAWER 7, Y5N ONE (16:37)
[2020-08-17] MEDS: REMDESIVIR 100 MG in SODIUM CHLORIDE 230 ML IVPB SCH (17:20)
[2020-08-17] MEDS: ATORVASTATIN CA 10 MG TABLET (FP) PO SCH (21:08)
[2020-08-17] MEDS: CHLORHEXIDINE GLUCONATE 4% CLEANSER FOR DECOLONIZATION TP SCH (21:09)
[2020-08-18] MEDS ORDERED: ALBUTEROL SO4 HFA INHALER IH PRN (00:20)
[2020-08-18] MEDS: INSULIN SLIDING SCALE (NOVOLOG) 1 VIAL SQ SCH ×4 (06:04→22:14)
[2020-08-18] MEDS: ACETAMINOPHEN 325 MG TABLET (FP) PO PRN (06:05)
[2020-08-18 06:55] LABS: BASO % 0.4 % (0-2.0); EOS % 0.1 % (0-4.5); HEMATOCRIT 40.3 % (32.4-45.2); HEMOGLOBIN 12.9 GM/dL (10.7-15.3); MCH 25.9 pg (25.7-33.7); MCHC 32.1 g/dl (32.0-36.0); MEAN CELL VOLUME 80.9 fl (80-96); MEAN PLT VOLUME 9.4 fl (7.5-11.1); MONO % 4.5 % (3.8-10.2); PLATELET COUNT 348 K/MM3 (134-434); RBC 4.98 M/mm3 (3.60-5.2); RDW 15.5 % (11.6-15.6); WHITE BLOOD COUNT 24.3 K/mm3 (4.0-10.0)
[2020-08-18 07:15] LABS: CALCIUM 8.6 mg/dL (8.5-10.1)
[2020-08-18 07:16] LABS: ALBUMIN 2.1 g/dl (3.4-5.0); BLOOD UREA NITROGEN 14.3 mg/dL (7-18); MAGNESIUM 1.9 mg/dL (1.8-2.4)
[2020-08-18 07:19] LABS: CREATININE 0.5 mg/dL (0.55-1.3); PHOSPHOROUS 3.3 mg/dL (2.5-4.9)
[2020-08-18 07:20] LABS: BILIRUBIN,TOTAL 0.5 mg/dL (0.2-1)
[2020-08-18] MEDS: DEXAMETHASONE SOD PHOSPHATE 4 MG/1 ML VIAL IVPUSH SCH (09:02)
[2020-08-18] MEDS: ZINC SULFATE 220 MG CAPSULE (FP) PO SCH (09:03)
[2020-08-18] MEDS: APIXABAN 5 MG TABLET PO SCH ×2 (09:03→21:36)
[2020-08-18] MEDS: FAMOTIDINE 20 MG TABLET PO SCH ×2 (09:04→21:36)
[2020-08-18] MEDS: ASCORBIC ACID 500 MG TABLET (FP) PO SCH ×2 (09:04→21:36)
[2020-08-18] MEDS: RAMIPRIL 5 MG CAPSULE PO SCH (09:04)
[2020-08-18] MEDS: MUPIROCIN 2% TOPICAL OINTMENT FOR DECOLONIZATION NS SCH ×2 (09:05→21:36)
[2020-08-18] MEDS: CHOLECALCIFEROL (VIT D3) 1,000 UNIT (25 MCG) TABLET PO SCH (09:05)
[2020-08-18] MEDS: ASPIRIN 81 MG CHEWABLE TABLETS PO SCH (09:05)
[2020-08-18 09:19] LABS: ANISOCYTOSIS 1+; MACROCYTOSIS 1+; PLATELET ESTIMATE NORMAL
[2020-08-18] MEDS ORDERED: PT OWN MED DRAWER 7, Y5N ONE (17:55)
[2020-08-18] MEDS: ALBUTEROL SO4 HFA INHALER IH PRN (19:00)
[2020-08-18] MEDS: CHLORHEXIDINE GLUCONATE 4% CLEANSER FOR DECOLONIZATION TP SCH (21:36)
[2020-08-18] MEDS: ATORVASTATIN CA 10 MG TABLET (FP) PO SCH (21:36)
[2020-08-18] MEDS: BUDESONIDE/FORMETEROL FUMARATE 160/4.5 mcg INHALER IH SCH (21:36)
[2020-08-19] MEDS: INSULIN SLIDING SCALE (NOVOLOG) 1 VIAL SQ SCH ×4 (06:11→20:59)
[2020-08-19 06:52] LABS: HEMATOCRIT 42.4 % (32.4-45.2); HEMOGLOBIN 13.7 GM/dL (10.7-15.3); MCHC 32.3 g/dl (32.0-36.0); MEAN CELL VOLUME 80.5 fl (80-96); MEAN PLT VOLUME 9.7 fl (7.5-11.1); PLATELET COUNT 328 K/MM3 (134-434); RBC 5.27 M/mm3 (3.60-5.2); RDW 15.3 % (11.6-15.6); WHITE BLOOD COUNT 26.5 K/mm3 (4.0-10.0)
[2020-08-19 07:54] LABS: BLOOD UREA NITROGEN 13.1 mg/dL (7-18); CALCIUM 8.5 mg/dL (8.5-10.1)
[2020-08-19 07:55] LABS: MAGNESIUM 1.9 mg/dL (1.8-2.4)
[2020-08-19 07:57] LABS: CREATININE 0.4 mg/dL (0.55-1.3); PHOSPHOROUS 3.4 mg/dL (2.5-4.9)
[2020-08-19 07:59] LABS: BILIRUBIN,TOTAL 0.8 mg/dL (0.2-1); TOT PROT 6.1 g/dl (6.4-8.2)
[2020-08-19] MEDS: FAMOTIDINE 20 MG TABLET PO SCH ×2 (09:05→21:00)
[2020-08-19] MEDS: CHOLECALCIFEROL (VIT D3) 1,000 UNIT (25 MCG) TABLET PO SCH (09:06)
[2020-08-19] MEDS: ZINC SULFATE 220 MG CAPSULE (FP) PO SCH (09:06)
[2020-08-19] MEDS: APIXABAN 5 MG TABLET PO SCH ×2 (09:06→20:59)
[2020-08-19] MEDS: MUPIROCIN 2% TOPICAL OINTMENT FOR DECOLONIZATION NS SCH ×2 (09:07→20:59)
[2020-08-19] MEDS: ASCORBIC ACID 500 MG TABLET (FP) PO SCH ×2 (09:07→21:00)
[2020-08-19] MEDS: ASPIRIN 81 MG CHEWABLE TABLETS PO SCH (09:07)
[2020-08-19] MEDS: BUDESONIDE/FORMETEROL FUMARATE 160/4.5 mcg INHALER IH SCH ×2 (09:08→21:00)
[2020-08-19] MEDS: DEXAMETHASONE SOD PHOSPHATE 4 MG/1 ML VIAL IVPUSH SCH (09:08)
[2020-08-19] MEDS ORDERED: methylPREDNISolone NA SUCC 40 MG/1 ML VIAL IVPUSH ONE (10:48)
[2020-08-19] MEDS ORDERED: MAG HYDROX/AL HYDROX/SIMETH 30 ML UNIT-DOSE CUP PO ONE (10:49)
[2020-08-19] MEDS: RAMIPRIL 5 MG CAPSULE PO SCH (11:00)
[2020-08-19] MEDS: ALBUTEROL SO4 HFA INHALER IH PRN ×2 (16:30→19:42)
[2020-08-19] MEDS: ATORVASTATIN CA 10 MG TABLET (FP) PO SCH (20:59)
[2020-08-19] MEDS: CHLORHEXIDINE GLUCONATE 4% CLEANSER FOR DECOLONIZATION TP SCH (20:59)
[2020-08-20] MEDS: ACETAMINOPHEN 325 MG TABLET (FP) PO PRN ×3 (02:35→21:09)
[2020-08-20] MEDS: INSULIN SLIDING SCALE (NOVOLOG) 1 VIAL SQ SCH ×4 (06:30→21:12)
[2020-08-20 07:15] LABS: BASO % 0.3 % (0-2.0); HEMATOCRIT 41.4 % (32.4-45.2); HEMOGLOBIN 13.3 GM/dL (10.7-15.3); LYMPH % 2.2 % (8-40); MCH 26.4 pg (25.7-33.7); MCHC 32.3 g/dl (32.0-36.0); MEAN CELL VOLUME 81.9 fl (80-96); MEAN PLT VOLUME 10.2 fl (7.5-11.1); MONO % 3.9 % (3.8-10.2); NEUT % 93.6 % (42.8-82.8); PLATELET COUNT 342 K/MM3 (134-434); RBC 5.05 M/mm3 (3.60-5.2); RDW 15.4 % (11.6-15.6)
[2020-08-20 07:19] LABS: WHITE BLOOD COUNT 31.5 K/mm3 (4.0-10.0)
[2020-08-20 07:56] LABS: ALBUMIN 1.9 g/dl (3.4-5.0); BLOOD UREA NITROGEN 22.1 mg/dL (7-18); MAGNESIUM 2.3 mg/dL (1.8-2.4)
[2020-08-20 07:58] LABS: CALCIUM 8.3 mg/dL (8.5-10.1); CREATININE 0.7 mg/dL (0.55-1.3); PHOSPHOROUS 4.3 mg/dL (2.5-4.9)
[2020-08-20 08:01] LABS: BILIRUBIN,TOTAL 0.6 mg/dL (0.2-1); TOT PROT 6.2 g/dl (6.4-8.2)
[2020-08-20 09:13] LABS: ANISOCYTOSIS 0; MACROCYTOSIS 0; PLATELET ESTIMATE NORMAL
[2020-08-20] MEDS: CHOLECALCIFEROL (VIT D3) 1,000 UNIT (25 MCG) TABLET PO SCH (09:19)
[2020-08-20] MEDS: BUDESONIDE/FORMETEROL FUMARATE 160/4.5 mcg INHALER IH SCH ×2 (09:19→21:13)
[2020-08-20] MEDS: ASCORBIC ACID 500 MG TABLET (FP) PO SCH ×2 (09:19→21:10)
[2020-08-20] MEDS: APIXABAN 5 MG TABLET PO SCH ×2 (09:19→21:10)
[2020-08-20] MEDS: MUPIROCIN 2% TOPICAL OINTMENT FOR DECOLONIZATION NS SCH ×2 (09:20→21:12)
[2020-08-20] MEDS: DEXAMETHASONE SOD PHOSPHATE 4 MG/1 ML VIAL IVPUSH SCH (09:20)
[2020-08-20] MEDS: FAMOTIDINE 20 MG TABLET PO SCH ×2 (09:20→21:10)
[2020-08-20] MEDS: ASPIRIN 81 MG CHEWABLE TABLETS PO SCH (09:20)
[2020-08-20] MEDS: RAMIPRIL 5 MG CAPSULE PO SCH (09:20)
[2020-08-20] MEDS: ZINC SULFATE 220 MG CAPSULE (FP) PO SCH (09:20)
[2020-08-20] MEDS: ALBUTEROL SO4 HFA INHALER IH PRN (09:21)
[2020-08-20] MEDS: ATORVASTATIN CA 10 MG TABLET (FP) PO SCH (21:10)
[2020-08-20] MEDS: CHLORHEXIDINE GLUCONATE 4% CLEANSER FOR DECOLONIZATION TP SCH (21:10)
[2020-08-21] MEDS: INSULIN SLIDING SCALE (NOVOLOG) 1 VIAL SQ SCH ×4 (06:03→22:13)
[2020-08-21 07:14] LABS: HEMATOCRIT 41.4 % (32.4-45.2); HEMOGLOBIN 13.1 GM/dL (10.7-15.3); MCH 25.7 pg (25.7-33.7); MCHC 31.7 g/dl (32.0-36.0); MEAN CELL VOLUME 81.2 fl (80-96); PLATELET COUNT 361 K/MM3 (134-434); RDW 15.5 % (11.6-15.6); WHITE BLOOD COUNT 29.9 K/mm3 (4.0-10.0)
[2020-08-21 07:28] LABS: CALCIUM 8.8 mg/dL (8.5-10.1)
[2020-08-21 07:29] LABS: ALBUMIN 1.8 g/dl (3.4-5.0); BLOOD UREA NITROGEN 16.5 mg/dL (7-18); MAGNESIUM 2.2 mg/dL (1.8-2.4)
[2020-08-21 07:32] LABS: BILIRUBIN,TOTAL 0.6 mg/dL (0.2-1); CREATININE 0.5 mg/dL (0.55-1.3); PHOSPHOROUS 3.5 mg/dL (2.5-4.9)
[2020-08-21 07:33] LABS: TOT PROT 6.3 g/dl (6.4-8.2)
[2020-08-21] MEDS ORDERED: ROCURONIUM BROMIDE 50 MG/5 ML SYRINGE IV ONE (08:30)
[2020-08-21] MEDS ORDERED: MIDAZOLAM HCL 5 MG/1 ML Single Dose Vial IVPUSH ONE (08:43)
[2020-08-21] MEDS ORDERED: PROPOFOL 1,000,000 MCG/100 ML VIAL ONE (09:08)
[2020-08-21] MEDS ORDERED: PROPOFOL 200 MG/20 ML VIAL IVPUSH ONE ×2 (09:24)
[2020-08-21] MEDS ORDERED: MIDAZOLAM 100 MG in SODIUM CHLORIDE 100 ML IVPB SCH (09:30)
[2020-08-21] MEDS: DEXAMETHASONE SOD PHOSPHATE 4 MG/1 ML VIAL IVPUSH SCH (09:30)
[2020-08-21] MEDS ORDERED: ROCURONIUM BROMIDE 100 MG in DEXTROSE 5%-WATER - 90 ML IVPB SCH (09:30)
[2020-08-21] MEDS: PROPOFOL 1,000,000 MCG/100 ML VIAL IVPB SCH (09:45)
[2020-08-21] MEDS: MUPIROCIN 2% TOPICAL OINTMENT FOR DECOLONIZATION NS SCH (10:00)
[2020-08-21] MEDS: MIDAZOLAM IN 0.9 % SOD.CHLORID 100 MG/100 ML PLAST..BAG IVPB SCH (10:37)
[2020-08-21] MEDS: BUDESONIDE/FORMETEROL FUMARATE 160/4.5 mcg INHALER IH SCH ×2 (12:50→21:57)
[2020-08-21] MEDS: ASPIRIN 81 MG CHEWABLE TABLETS PO SCH (12:51)
[2020-08-21] MEDS: FAMOTIDINE 20 MG TABLET PO SCH ×2 (12:51→21:58)
[2020-08-21] MEDS: RAMIPRIL 5 MG CAPSULE PO SCH (12:51)
[2020-08-21] MEDS: ASCORBIC ACID 500 MG TABLET (FP) PO SCH ×2 (12:51→21:57)
[2020-08-21] MEDS: CHOLECALCIFEROL (VIT D3) 1,000 UNIT (25 MCG) TABLET PO SCH (12:51)
[2020-08-21] MEDS: ZINC SULFATE 220 MG CAPSULE (FP) PO SCH (12:51)
[2020-08-21] MEDS: APIXABAN 5 MG TABLET PO SCH ×2 (12:51→21:57)
[2020-08-21] MEDS: ROCURONIUM BROMIDE 500 MG/300 ML BAG IVPB SCH (14:00)
[2020-08-21 17:19] LABS: ARTERIAL BLD GAS O2 SATURATION 94.7 mmHg (95-98); ARTERIAL BLOOD GAS PO2 91.9 mmHg (80-100)
[2020-08-21 17:20] LABS: ALLENS TEST POSITIVE
[2020-08-21 17:21] LABS: PT'S TEMP 98.6; VENT MODE AC; VENT RATE 375
[2020-08-21 17:26] LABS: ARTERIAL BLOOD GAS pH 7.184 (7.350-7.450)
[2020-08-21] MEDS: ATORVASTATIN CA 10 MG TABLET (FP) PO SCH (21:57)
[2020-08-21] MEDS: CHLORHEXIDINE GLUCONATE 4% CLEANSER FOR DECOLONIZATION TP SCH (21:58)
[2020-08-22] MEDS: INSULIN SLIDING SCALE (NOVOLOG) 1 VIAL SQ SCH ×3 (06:08→16:18)
[2020-08-22 06:16] LABS: ARTERIAL BLD GAS O2 SATURATION 97.7 mmHg (95-98); ARTERIAL BLOOD GAS BASE EXCESS -3.8 mmol/L (-2-2); ARTERIAL BLOOD GAS pH 7.234 (7.350-7.450)
[2020-08-22 06:17] LABS: ALLENS TEST POSITIVE; VENT MODE A/C
[2020-08-22 06:18] LABS: VENT RATE 26
[2020-08-22] MEDS: NOREPINEPHRINE BITARTRATE 8,000 MCG/500 ML BAG IVPB SCH ×2 (06:48→18:32)
[2020-08-22 07:39] LABS: BASO % 0.3 % (0-2.0); HEMATOCRIT 39.8 % (32.4-45.2); HEMOGLOBIN 12.7 GM/dL (10.7-15.3); LYMPH % 2.3 % (8-40); MCH 26.6 pg (25.7-33.7); MEAN CELL VOLUME 83.2 fl (80-96); MEAN PLT VOLUME 10.3 fl (7.5-11.1); MONO % 4.3 % (3.8-10.2); NEUT % 93.1 % (42.8-82.8); PLATELET COUNT 331 K/MM3 (134-434); RBC 4.78 M/mm3 (3.60-5.2); RDW 15.3 % (11.6-15.6); WHITE BLOOD COUNT 27.4 K/mm3 (4.0-10.0)
[2020-08-22 07:46] LABS: ALBUMIN 1.7 g/dl (3.4-5.0); CALCIUM 9.1 mg/dL (8.5-10.1)
[2020-08-22 07:47] LABS: BLOOD UREA NITROGEN 31.5 mg/dL (7-18)
[2020-08-22 07:48] LABS: MAGNESIUM 2.5 mg/dL (1.8-2.4)
[2020-08-22 07:50] LABS: PHOSPHOROUS 4.8 mg/dL (2.5-4.9)
[2020-08-22 07:52] LABS: BILIRUBIN,TOTAL 0.7 mg/dL (0.2-1)
[2020-08-22 07:53] LABS: TOT PROT 6.3 g/dl (6.4-8.2)
[2020-08-22 10:15] LABS: ANISOCYTOSIS 0; HELMET CELLS 0; HOWELL-JOLLY BODIES 0; MACROCYTOSIS 0; OVALOCYTE 0; PLATELET ESTIMATE NORMAL; ROULEAU 0; SICKELED CELLS 0; TARGET CELLS 0; TEAR DROP CELLS 0; TOXIC GRANULATION 0
[2020-08-22] MEDS: RAMIPRIL 5 MG CAPSULE PO SCH (10:40)
[2020-08-22] MEDS: BUDESONIDE/FORMETEROL FUMARATE 160/4.5 mcg INHALER IH SCH ×2 (10:48→22:23)
[2020-08-22] MEDS: ASPIRIN 81 MG CHEWABLE TABLETS NGT SCH (11:00)
[2020-08-22] MEDS: FAMOTIDINE 40 MG/5 ML ORAL SUSPENSION NGT SCH (11:00)
[2020-08-22] MEDS: APIXABAN 5 MG TABLET NGT SCH ×2 (11:00→23:42)
[2020-08-22] MEDS: ZINC SULFATE 220 MG CAPSULE (FP) NGT SCH (11:00)
[2020-08-22] MEDS ORDERED: ACETAMINOPHEN 325 MG TABLET (FP) NR PRN (11:09)
[2020-08-22] MEDS: MIDAZOLAM IN 0.9 % SOD.CHLORID 100 MG/100 ML PLAST..BAG IVPB SCH (11:24)
[2020-08-22] MEDS: PROPOFOL 1,000,000 MCG/100 ML VIAL IVPB SCH (11:24)
[2020-08-22] MEDS ORDERED: SODIUM CHLORIDE 1,000 ML IV SCH (11:45)
[2020-08-22] MEDS: DEXAMETHASONE SOD PHOSPHATE 4 MG/1 ML VIAL IVPUSH SCH ×2 (16:00→23:42)
[2020-08-22] MEDS ORDERED: ACETAMINOPHEN 1000 MG/100 ML BAG IVPB ONE (17:21)
[2020-08-22] MEDS: ROCURONIUM BROMIDE 500 MG/300 ML BAG IVPB SCH (17:37)
[2020-08-22] MEDS ORDERED: PT OWN MED DRAWER 7, Y5N ONE (20:16)
[2020-08-22] MEDS ORDERED: INSULIN (NOVOLOG) ASPART 100 UNITS/ML 10ML VIAL ONE (22:13)
[2020-08-22] MEDS: ATORVASTATIN CA 10 MG TABLET (FP) NGT SCH (23:42)
[2020-08-22] MEDS: CHLORHEXIDINE GLUCONATE 4% CLEANSER FOR DECOLONIZATION TP SCH (23:42)
[2020-08-22] MEDS: ASCORBIC ACID 500 MG/5 ML UNIT DOSE CUP NGT SCH (23:43)
[2020-08-23] MEDS: INSULIN SLIDING SCALE (NOVOLOG) 1 VIAL SQ SCH ×5 (00:08→21:41)
[2020-08-23] MEDS: FAMOTIDINE 40 MG/5 ML ORAL SUSPENSION NGT SCH ×3 (00:09→21:41)
[2020-08-23] MEDS: DEXAMETHASONE SOD PHOSPHATE 4 MG/1 ML VIAL IVPUSH SCH ×4 (02:02→21:41)
[2020-08-23] MEDS: ACETAMINOPHEN 650 MG/20.3 ML ORAL SOLUTION (CUPS) GT PRN (02:26)
[2020-08-23] MEDS ORDERED: ROCURONIUM BROMIDE 500 MG/300 ML BAG IVPB SCH (06:45)
[2020-08-23 07:13] LABS: HEMATOCRIT 34.3 % (32.4-45.2); HEMOGLOBIN 10.8 GM/dL (10.7-15.3); MCH 25.9 pg (25.7-33.7); MCHC 31.5 g/dl (32.0-36.0); MEAN CELL VOLUME 82.3 fl (80-96); PLATELET COUNT 255 K/MM3 (134-434); RBC 4.17 M/mm3 (3.60-5.2); RDW 15.3 % (11.6-15.6)
[2020-08-23 07:41] LABS: ALBUMIN 1.5 g/dl (3.4-5.0); CALCIUM 8.2 mg/dL (8.5-10.1)
[2020-08-23 07:42] LABS: BLOOD UREA NITROGEN 22.6 mg/dL (7-18); MAGNESIUM 2.6 mg/dL (1.8-2.4)
[2020-08-23 07:45] LABS: CREATININE 0.8 mg/dL (0.55-1.3); PHOSPHOROUS 2.8 mg/dL (2.5-4.9)
[2020-08-23 07:46] LABS: BILIRUBIN,TOTAL 0.6 mg/dL (0.2-1); TOT PROT 5.4 g/dl (6.4-8.2)
[2020-08-23] MEDS ORDERED: PT OWN MED DRAWER 7, Y5N ONE (10:21)
[2020-08-23] MEDS: ASPIRIN 81 MG CHEWABLE TABLETS NGT SCH (10:53)
[2020-08-23] MEDS: ZINC SULFATE 220 MG CAPSULE (FP) NGT SCH (10:54)
[2020-08-23] MEDS: APIXABAN 5 MG TABLET NGT SCH ×2 (10:54→21:41)
[2020-08-23] MEDS: CHOLECALCIFEROL (VIT D SOLUTION) 400 UNIT/1 ML DROPS GT SCH (10:54)
[2020-08-23] MEDS: ASCORBIC ACID 500 MG/5 ML UNIT DOSE CUP NGT SCH ×2 (10:54→21:42)
[2020-08-23] MEDS: BUDESONIDE/FORMETEROL FUMARATE 160/4.5 mcg INHALER IH SCH ×2 (10:55→21:41)
[2020-08-23] MEDS: NOREPINEPHRINE BITARTRATE 8,000 MCG/500 ML BAG IVPB SCH (10:55)
[2020-08-23] MEDS: PROPOFOL 1,000,000 MCG/100 ML VIAL IVPB SCH ×2 (10:56→15:00)
[2020-08-23] MEDS: ROCURONIUM BROMIDE 500 MG/300 ML BAG IVPB SCH (10:56)
[2020-08-23] MEDS: RAMIPRIL 5 MG CAPSULE NGT SCH (10:58)
[2020-08-23] MEDS: MIDAZOLAM IN 0.9 % SOD.CHLORID 100 MG/100 ML PLAST..BAG IVPB SCH (10:58)
[2020-08-23] MEDS ORDERED: SODIUM CHLORIDE 1,000 ML IV SCH (11:47)
[2020-08-23] MEDS: ATORVASTATIN CA 10 MG TABLET (FP) NGT SCH (21:41)
[2020-08-23] MEDS: CHLORHEXIDINE GLUCONATE 4% CLEANSER FOR DECOLONIZATION TP SCH (21:41)
[2020-08-24] MEDS: DEXAMETHASONE SOD PHOSPHATE 4 MG/1 ML VIAL IVPUSH SCH ×4 (03:00→21:00)
[2020-08-24] MEDS: ROCURONIUM BROMIDE 500 MG/300 ML BAG IVPB SCH ×3 (06:08→09:37)
[2020-08-24] MEDS: INSULIN SLIDING SCALE (NOVOLOG) 1 VIAL SQ SCH ×4 (06:09→21:45)
[2020-08-24 06:50] LABS: BASO % 0.1 % (0-2.0); HEMATOCRIT 32.8 % (32.4-45.2); HEMOGLOBIN 10.3 GM/dL (10.7-15.3); LYMPH % 2.8 % (8-40); MCH 25.7 pg (25.7-33.7); MCHC 31.3 g/dl (32.0-36.0); MEAN CELL VOLUME 82.1 fl (80-96); MEAN PLT VOLUME 9.9 fl (7.5-11.1); MONO % 3.8 % (3.8-10.2); NEUT % 93.3 % (42.8-82.8); PLATELET COUNT 200 K/MM3 (134-434); RBC 3.99 M/mm3 (3.60-5.2); RDW 15.3 % (11.6-15.6); WHITE BLOOD COUNT 14.3 K/mm3 (4.0-10.0)
[2020-08-24 07:01] LABS: CALCIUM 8.3 mg/dL (8.5-10.1)
[2020-08-24 07:02] LABS: ALBUMIN 1.4 g/dl (3.4-5.0); BLOOD UREA NITROGEN 19.2 mg/dL (7-18); MAGNESIUM 2.4 mg/dL (1.8-2.4)
[2020-08-24 07:05] LABS: CREATININE 0.5 mg/dL (0.55-1.3); PHOSPHOROUS 3.2 mg/dL (2.5-4.9)
[2020-08-24 07:06] LABS: BILIRUBIN,TOTAL 0.3 mg/dL (0.2-1); TOT PROT 5.2 g/dl (6.4-8.2)
[2020-08-24] MEDS ORDERED: PT OWN MED DRAWER 7, Y5N ONE ×2 (08:52→20:39)
[2020-08-24] MEDS: NOREPINEPHRINE BITARTRATE 8,000 MCG/500 ML BAG IVPB SCH (09:31)
[2020-08-24] MEDS: FAMOTIDINE 40 MG/5 ML ORAL SUSPENSION NGT SCH ×2 (09:32→21:35)
[2020-08-24] MEDS: CHOLECALCIFEROL (VIT D SOLUTION) 400 UNIT/1 ML DROPS GT SCH (09:32)
[2020-08-24] MEDS: ASCORBIC ACID 500 MG/5 ML UNIT DOSE CUP NGT SCH ×2 (09:33→21:36)
[2020-08-24] MEDS: APIXABAN 5 MG TABLET NGT SCH ×2 (09:33→21:34)
[2020-08-24] MEDS: ASPIRIN 81 MG CHEWABLE TABLETS NGT SCH (09:33)
[2020-08-24] MEDS: ZINC SULFATE 220 MG CAPSULE (FP) NGT SCH (09:34)
[2020-08-24 09:35] LABS: ANISOCYTOSIS 1+; MACROCYTOSIS 0; PLATELET ESTIMATE NORMAL
[2020-08-24] MEDS: MIDAZOLAM IN 0.9 % SOD.CHLORID 100 MG/100 ML PLAST..BAG IVPB SCH ×2 (09:35→12:48)
[2020-08-24] MEDS: RAMIPRIL 5 MG CAPSULE NGT SCH (09:36)
[2020-08-24] MEDS: BUDESONIDE/FORMETEROL FUMARATE 160/4.5 mcg INHALER IH SCH ×2 (09:36→21:37)
[2020-08-24] MEDS: PROPOFOL 1,000,000 MCG/100 ML VIAL IVPB SCH (09:37)
[2020-08-24] MEDS ORDERED: FUROSEMIDE 40 MG/4 ML INJECTABLE VIAL IVPUSH ONE (10:50)
[2020-08-24 11:18] LABS: ARTERIAL BLD GAS O2 SATURATION 95.5 mmHg (95-98); ARTERIAL BLOOD GAS PO2 90.4 mmHg (80-100); ARTERIAL BLOOD GAS pH 7.267 (7.350-7.450)
[2020-08-24 11:20] LABS: ALLENS TEST POSITIVE; VENT MODE A/C; VENT RATE 26
[2020-08-24] MEDS: CHLORHEXIDINE GLUCONATE 4% CLEANSER FOR DECOLONIZATION TP SCH (21:35)
[2020-08-24] MEDS: ATORVASTATIN CA 10 MG TABLET (FP) NGT SCH (21:35)
[2020-08-25] MEDS: PROPOFOL 1,000,000 MCG/100 ML VIAL IVPB SCH ×5 (01:28→23:31)
[2020-08-25] MEDS: DEXAMETHASONE SOD PHOSPHATE 4 MG/1 ML VIAL IVPUSH SCH ×4 (03:15→21:01)
[2020-08-25] MEDS: INSULIN SLIDING SCALE (NOVOLOG) 1 VIAL SQ SCH ×4 (06:06→21:24)
[2020-08-25 07:37] LABS: HEMATOCRIT 33.3 % (32.4-45.2); HEMOGLOBIN 10.7 GM/dL (10.7-15.3); MCH 26.3 pg (25.7-33.7); MCHC 32.1 g/dl (32.0-36.0); MEAN CELL VOLUME 81.9 fl (80-96); MEAN PLT VOLUME 10.2 fl (7.5-11.1); PLATELET COUNT 204 K/MM3 (134-434); RBC 4.06 M/mm3 (3.60-5.2); RDW 15.1 % (11.6-15.6); WHITE BLOOD COUNT 17.8 K/mm3 (4.0-10.0)
[2020-08-25 07:37] LABS: ALBUMIN 1.6 g/dl (3.4-5.0); BILIRUBIN,TOTAL 0.3 mg/dL (0.2-1); TOT PROT 5.5 g/dl (6.4-8.2)
[2020-08-25 07:39] LABS: BLOOD UREA NITROGEN 21.5 mg/dL (7-18); CREATININE 0.5 mg/dL (0.55-1.3)
[2020-08-25 07:40] LABS: CALCIUM 8.5 mg/dL (8.5-10.1); MAGNESIUM 2.2 mg/dL (1.8-2.4); PHOSPHOROUS 2.6 mg/dL (2.5-4.9)
[2020-08-25] MEDS: MIDAZOLAM IN 0.9 % SOD.CHLORID 100 MG/100 ML PLAST..BAG IVPB SCH ×2 (09:00→10:47)
[2020-08-25] MEDS ORDERED: PT OWN MED DRAWER 7, Y5N ONE ×2 (10:10→20:59)
[2020-08-25] MEDS: ASCORBIC ACID 500 MG/5 ML UNIT DOSE CUP NGT SCH ×2 (10:44→21:02)
[2020-08-25] MEDS: ASPIRIN 81 MG CHEWABLE TABLETS NGT SCH (10:44)
[2020-08-25] MEDS: CHOLECALCIFEROL (VIT D SOLUTION) 400 UNIT/1 ML DROPS GT SCH (10:44)
[2020-08-25] MEDS: ZINC SULFATE 220 MG CAPSULE (FP) NGT SCH (10:45)
[2020-08-25] MEDS: FAMOTIDINE 40 MG/5 ML ORAL SUSPENSION NGT SCH ×2 (10:45→21:01)
[2020-08-25] MEDS: RAMIPRIL 5 MG CAPSULE NGT SCH (10:45)
[2020-08-25] MEDS: APIXABAN 5 MG TABLET NGT SCH ×2 (10:45→21:01)
[2020-08-25] MEDS: NOREPINEPHRINE BITARTRATE 8,000 MCG/500 ML BAG IVPB SCH (10:46)
[2020-08-25] MEDS: BUDESONIDE/FORMETEROL FUMARATE 160/4.5 mcg INHALER IH SCH ×2 (10:47→21:02)
[2020-08-25] MEDS: ACETAMINOPHEN 650 MG/20.3 ML ORAL SOLUTION (CUPS) GT PRN (18:16)
[2020-08-25] MEDS: CHLORHEXIDINE GLUCONATE 4% CLEANSER FOR DECOLONIZATION TP SCH (21:01)
[2020-08-25] MEDS: ATORVASTATIN CA 10 MG TABLET (FP) NGT SCH (21:01)
[2020-08-26] MEDS: DEXAMETHASONE SOD PHOSPHATE 4 MG/1 ML VIAL IVPUSH SCH ×4 (02:01→21:00)
[2020-08-26] MEDS: MIDAZOLAM IN 0.9 % SOD.CHLORID 100 MG/100 ML PLAST..BAG IVPB SCH ×2 (05:41→17:22)
[2020-08-26] MEDS: INSULIN SLIDING SCALE (NOVOLOG) 1 VIAL SQ SCH ×4 (06:05→22:21)
[2020-08-26 06:51] LABS: HEMATOCRIT 34.4 % (32.4-45.2); HEMOGLOBIN 10.8 GM/dL (10.7-15.3); LYMPH % 2.1 % (8-40); MCHC 31.5 g/dl (32.0-36.0); MEAN CELL VOLUME 82.8 fl (80-96); MEAN PLT VOLUME 9.8 fl (7.5-11.1); MONO % 2.9 % (3.8-10.2); PLATELET COUNT 198 K/MM3 (134-434); RBC 4.15 M/mm3 (3.60-5.2); RDW 15.1 % (11.6-15.6); WHITE BLOOD COUNT 17.7 K/mm3 (4.0-10.0)
[2020-08-26 07:07] LABS: ALBUMIN 1.6 g/dl (3.4-5.0); BLOOD UREA NITROGEN 24.1 mg/dL (7-18); CALCIUM 8.6 mg/dL (8.5-10.1); MAGNESIUM 2.5 mg/dL (1.8-2.4)
[2020-08-26 07:10] LABS: CREATININE 0.5 mg/dL (0.55-1.3)
[2020-08-26 07:11] LABS: BILIRUBIN,TOTAL 0.3 mg/dL (0.2-1); PHOSPHOROUS 2.8 mg/dL (2.5-4.9)
[2020-08-26 07:12] LABS: TOT PROT 5.6 g/dl (6.4-8.2)
[2020-08-26 09:05] LABS: ANISOCYTOSIS 1+; MACROCYTOSIS 0; PLATELET ESTIMATE NORMAL
[2020-08-26] MEDS ORDERED: PT OWN MED DRAWER 7, Y5N ONE ×3 (09:21→21:30)
[2020-08-26] MEDS: FAMOTIDINE 40 MG/5 ML ORAL SUSPENSION NGT SCH ×2 (10:13→22:08)
[2020-08-26] MEDS: APIXABAN 5 MG TABLET NGT SCH ×2 (10:13→22:07)
[2020-08-26] MEDS: ASCORBIC ACID 500 MG/5 ML UNIT DOSE CUP NGT SCH ×2 (10:13→22:09)
[2020-08-26] MEDS: CHOLECALCIFEROL (VIT D SOLUTION) 400 UNIT/1 ML DROPS GT SCH (10:14)
[2020-08-26] MEDS: BUDESONIDE/FORMETEROL FUMARATE 160/4.5 mcg INHALER IH SCH ×2 (10:16→22:09)
[2020-08-26] MEDS: ZINC SULFATE 220 MG CAPSULE (FP) NGT SCH (10:17)
[2020-08-26] MEDS: ASPIRIN 81 MG CHEWABLE TABLETS NGT SCH (10:17)
[2020-08-26] MEDS: RAMIPRIL 5 MG CAPSULE NGT SCH (10:17)
[2020-08-26] MEDS: POLYETHYLENE GLYCOL 3350 119 GM BTL NGT SCH (12:37)
[2020-08-26] MEDS ORDERED: INSULIN (NOVOLOG) ASPART 100 UNITS/ML 10ML VIAL ONE (16:54)
[2020-08-26] MEDS ORDERED: AMINO ACIDS/PROTEIN HYDROLYS 30 ML LIQUID.PKT NGT SCH (17:00)
[2020-08-26] MEDS: PROPOFOL 1,000,000 MCG/100 ML VIAL IVPB SCH ×2 (17:21→20:00)
[2020-08-26] MEDS: NOREPINEPHRINE BITARTRATE 8,000 MCG/500 ML BAG IVPB SCH (19:46)
[2020-08-26] MEDS: SENNOSIDES 8.8 MG/5 ML BULK BOTTLE NGT SCH (22:08)
[2020-08-26] MEDS: ATORVASTATIN CA 10 MG TABLET (FP) NGT SCH (22:08)
[2020-08-26] MEDS: CHLORHEXIDINE GLUCONATE 4% CLEANSER FOR DECOLONIZATION TP SCH (22:08)
[2020-08-27] MEDS: MIDAZOLAM IN 0.9 % SOD.CHLORID 100 MG/100 ML PLAST..BAG IVPB SCH ×3 (03:00→21:46)
[2020-08-27] MEDS: DEXAMETHASONE SOD PHOSPHATE 4 MG/1 ML VIAL IVPUSH SCH ×4 (04:00→21:13)
[2020-08-27] MEDS: PROPOFOL 1,000,000 MCG/100 ML VIAL IVPB SCH ×5 (06:19→19:30)
[2020-08-27] MEDS: INSULIN SLIDING SCALE (NOVOLOG) 1 VIAL SQ SCH ×4 (06:19→21:45)
[2020-08-27 06:59] LABS: HEMATOCRIT 32.8 % (32.4-45.2); HEMOGLOBIN 10.3 GM/dL (10.7-15.3); MCHC 31.5 g/dl (32.0-36.0); MEAN CELL VOLUME 82.5 fl (80-96); PLATELET COUNT 196 K/MM3 (134-434); RBC 3.98 M/mm3 (3.60-5.2); RDW 15.4 % (11.6-15.6); WHITE BLOOD COUNT 15.9 K/mm3 (4.0-10.0)
[2020-08-27] MEDS: NOREPINEPHRINE BITARTRATE 8,000 MCG/500 ML BAG IVPB SCH (07:00)
[2020-08-27 07:33] LABS: ALBUMIN 1.6 g/dl (3.4-5.0); BLOOD UREA NITROGEN 27.6 mg/dL (7-18); CALCIUM 8.5 mg/dL (8.5-10.1)
[2020-08-27 07:34] LABS: MAGNESIUM 2.3 mg/dL (1.8-2.4)
[2020-08-27 07:36] LABS: CREATININE 0.4 mg/dL (0.55-1.3); PHOSPHOROUS 2.8 mg/dL (2.5-4.9)
[2020-08-27 07:37] LABS: TOT PROT 5.2 g/dl (6.4-8.2)
[2020-08-27] MEDS: AMINO ACIDS/PROTEIN HYDROLYS 30 ML LIQUID.PKT NGT SCH ×2 (08:00→11:58)
[2020-08-27 08:11] LABS: BILIRUBIN,TOTAL 0.3 mg/dL (0.2-1)
[2020-08-27] MEDS ORDERED: DOCUSATE NA 100 MG/10 ML UNIT-DOSE CUPS PO PRN (09:12)
[2020-08-27] MEDS ORDERED: PT OWN MED DRAWER 7, Y5N ONE ×2 (09:22→18:43)
[2020-08-27] MEDS: ZINC SULFATE 220 MG CAPSULE (FP) NGT SCH (10:00)
[2020-08-27] MEDS: CHOLECALCIFEROL (VIT D SOLUTION) 400 UNIT/1 ML DROPS GT SCH (10:00)
[2020-08-27] MEDS: APIXABAN 5 MG TABLET NGT SCH ×2 (10:00→21:13)
[2020-08-27] MEDS: ASPIRIN 81 MG CHEWABLE TABLETS NGT SCH (10:00)
[2020-08-27] MEDS: POLYETHYLENE GLYCOL 3350 119 GM BTL NGT SCH (10:00)
[2020-08-27] MEDS ORDERED: DOCUSATE SODIUM 100 MG CAPSULE (FP) PO SCH (10:00)
[2020-08-27] MEDS: ASCORBIC ACID 500 MG/5 ML UNIT DOSE CUP NGT SCH ×2 (10:00→21:16)
[2020-08-27] MEDS: FAMOTIDINE 40 MG/5 ML ORAL SUSPENSION NGT SCH ×2 (10:00→21:12)
[2020-08-27] MEDS: BUDESONIDE/FORMETEROL FUMARATE 160/4.5 mcg INHALER IH SCH ×2 (10:24→21:15)
[2020-08-27] MEDS: RAMIPRIL 5 MG CAPSULE NGT SCH (10:24)
[2020-08-27] MEDS: ACETAMINOPHEN 650 MG/20.3 ML ORAL SOLUTION (CUPS) GT PRN ×2 (15:17→21:12)
[2020-08-27] MEDS: ATORVASTATIN CA 10 MG TABLET (FP) NGT SCH (21:13)
[2020-08-27] MEDS: SENNOSIDES 8.8 MG/5 ML BULK BOTTLE NGT SCH (21:13)
[2020-08-27] MEDS: CHLORHEXIDINE GLUCONATE 4% CLEANSER FOR DECOLONIZATION TP SCH (21:13)
[2020-08-28] MEDS: DEXAMETHASONE SOD PHOSPHATE 4 MG/1 ML VIAL IVPUSH SCH ×4 (02:34→21:00)
[2020-08-28] MEDS: NOREPINEPHRINE BITARTRATE 8,000 MCG/500 ML BAG IVPB SCH ×2 (06:43→13:00)
[2020-08-28] MEDS: INSULIN SLIDING SCALE (NOVOLOG) 1 VIAL SQ SCH ×4 (06:43→23:51)
[2020-08-28] MEDS: PROPOFOL 1,000,000 MCG/100 ML VIAL IVPB SCH ×3 (06:44→14:47)
[2020-08-28 07:03] LABS: HEMOGLOBIN 10.1 GM/dL (10.7-15.3); MCH 26.1 pg (25.7-33.7); MCHC 31.6 g/dl (32.0-36.0); MEAN CELL VOLUME 82.7 fl (80-96); PLATELET COUNT 192 K/MM3 (134-434); RBC 3.87 M/mm3 (3.60-5.2); RDW 15.3 % (11.6-15.6); WHITE BLOOD COUNT 14.4 K/mm3 (4.0-10.0)
[2020-08-28 07:34] LABS: CALCIUM 8.6 mg/dL (8.5-10.1)
[2020-08-28 07:35] LABS: ALBUMIN 1.6 g/dl (3.4-5.0); BLOOD UREA NITROGEN 28.1 mg/dL (7-18); MAGNESIUM 2.4 mg/dL (1.8-2.4)
[2020-08-28 07:37] LABS: CREATININE 0.5 mg/dL (0.55-1.3); PHOSPHOROUS 3.1 mg/dL (2.5-4.9)
[2020-08-28 07:39] LABS: BILIRUBIN,TOTAL 0.3 mg/dL (0.2-1); TOT PROT 5.2 g/dl (6.4-8.2)
[2020-08-28] MEDS: AMINO ACIDS/PROTEIN HYDROLYS 30 ML LIQUID.PKT NGT SCH (09:50)
[2020-08-28] MEDS: CHOLECALCIFEROL (VIT D SOLUTION) 400 UNIT/1 ML DROPS GT SCH (10:05)
[2020-08-28] MEDS: FAMOTIDINE 40 MG/5 ML ORAL SUSPENSION NGT SCH ×2 (10:06→23:10)
[2020-08-28] MEDS: ASPIRIN 81 MG CHEWABLE TABLETS NGT SCH (10:06)
[2020-08-28] MEDS: APIXABAN 5 MG TABLET NGT SCH ×2 (10:06→23:09)
[2020-08-28] MEDS: ZINC SULFATE 220 MG CAPSULE (FP) NGT SCH (10:07)
[2020-08-28] MEDS: BUDESONIDE/FORMETEROL FUMARATE 160/4.5 mcg INHALER IH SCH ×2 (10:07→23:11)
[2020-08-28] MEDS: ASCORBIC ACID 500 MG/5 ML UNIT DOSE CUP NGT SCH ×2 (10:07→23:11)
[2020-08-28] MEDS: POLYETHYLENE GLYCOL 3350 119 GM BTL NGT SCH (10:08)
[2020-08-28] MEDS ORDERED: PIPERACILLIN/TAZOB 3.375 GM 3.375 GM in DEXTROSE 5%-WATER - 50 ML IVPB SCH (10:15)
[2020-08-28] MEDS: RAMIPRIL 5 MG CAPSULE NGT SCH (10:46)
[2020-08-28] MEDS: ACETAMINOPHEN 650 MG/20.3 ML ORAL SOLUTION (CUPS) GT PRN (13:30)
[2020-08-28] MEDS ORDERED: VECURONIUM BROMIDE 10 MG/10 ML VIAL ONE (14:12)
[2020-08-28] MEDS ORDERED: PIPERACILLIN/TAZOBACTAM 3.375 GM VIAL IVPB ONE ×2 (14:14→18:31)
[2020-08-28] MEDS ORDERED: DEXTROSE 5%-WATER - 50 ML IVPB ONE ×2 (14:14→18:31)
[2020-08-28] MEDS ORDERED: ACETAMINOPHEN 1000 MG/100 ML BAG IVPB PRN (14:31)
[2020-08-28] MEDS: MIDAZOLAM IN 0.9 % SOD.CHLORID 100 MG/100 ML PLAST..BAG IVPB SCH ×2 (14:46→14:47)
[2020-08-28] MEDS: PIPERACILLIN/TAZOB 3.375 GM 3.375 GM in DEXTROSE 5%-WATER - 50 ML IVPB SCH ×2 (14:46→18:35)
[2020-08-28] MEDS ORDERED: PT OWN MED DRAWER 7, Y5N ONE (21:53)
[2020-08-28] MEDS: ATORVASTATIN CA 10 MG TABLET (FP) NGT SCH (23:10)
[2020-08-28] MEDS: CHLORHEXIDINE GLUCONATE 4% CLEANSER FOR DECOLONIZATION TP SCH (23:10)
[2020-08-28] MEDS: SENNOSIDES 8.8 MG/5 ML BULK BOTTLE NGT SCH (23:10)
[2020-08-29] MEDS: PIPERACILLIN/TAZOB 3.375 GM 3.375 GM in DEXTROSE 5%-WATER - 50 ML IVPB SCH ×2 (02:00→09:04)
[2020-08-29] MEDS ORDERED: DEXTROSE 5%-WATER - 50 ML IVPB ONE ×2 (02:57→07:57)
[2020-08-29] MEDS ORDERED: PIPERACILLIN/TAZOBACTAM 3.375 GM VIAL IVPB ONE ×2 (02:57→07:57)
[2020-08-29] MEDS: DEXAMETHASONE SOD PHOSPHATE 4 MG/1 ML VIAL IVPUSH SCH ×4 (03:00→21:00)
[2020-08-29 06:35] LABS: BASO % 0.2 % (0-2.0); EOS % 0.1 % (0-4.5); HEMATOCRIT 32.9 % (32.4-45.2); HEMOGLOBIN 10.3 GM/dL (10.7-15.3); LYMPH % 2.4 % (8-40); MCH 25.9 pg (25.7-33.7); MCHC 31.3 g/dl (32.0-36.0); MEAN CELL VOLUME 82.7 fl (80-96); MEAN PLT VOLUME 9.7 fl (7.5-11.1); MONO % 4.5 % (3.8-10.2); NEUT % 92.8 % (42.8-82.8); PLATELET COUNT 223 K/MM3 (134-434); RBC 3.98 M/mm3 (3.60-5.2); RDW 15.3 % (11.6-15.6); WHITE BLOOD COUNT 26.6 K/mm3 (4.0-10.0)
[2020-08-29 06:51] LABS: CALCIUM 7.1 mg/dL (8.5-10.1)
[2020-08-29 06:52] LABS: ALBUMIN 1.3 g/dl (3.4-5.0); BLOOD UREA NITROGEN 25.3 mg/dL (7-18)
[2020-08-29 06:55] LABS: CREATININE 0.5 mg/dL (0.55-1.3); PHOSPHOROUS 2.6 mg/dL (2.5-4.9)
[2020-08-29 06:56] LABS: BILIRUBIN,TOTAL 0.5 mg/dL (0.2-1); TOT PROT 4.5 g/dl (6.4-8.2)
[2020-08-29] MEDS: NOREPINEPHRINE BITARTRATE 8,000 MCG/500 ML BAG IVPB SCH (06:57)
[2020-08-29] MEDS: INSULIN SLIDING SCALE (NOVOLOG) 1 VIAL SQ SCH ×4 (07:11→23:14)
[2020-08-29] MEDS ORDERED: PT OWN MED DRAWER 7, Y5N ONE ×3 (07:57→22:14)
[2020-08-29] MEDS: AMINO ACIDS/PROTEIN HYDROLYS 30 ML LIQUID.PKT NGT SCH (08:18)
[2020-08-29] MEDS: PROPOFOL 1,000,000 MCG/100 ML VIAL IVPB SCH ×2 (09:00→22:35)
[2020-08-29] MEDS: ASCORBIC ACID 500 MG/5 ML UNIT DOSE CUP NGT SCH ×2 (09:02→23:17)
[2020-08-29] MEDS: ASPIRIN 81 MG CHEWABLE TABLETS NGT SCH (09:02)
[2020-08-29] MEDS: RAMIPRIL 5 MG CAPSULE NGT SCH (09:02)
[2020-08-29] MEDS: APIXABAN 5 MG TABLET NGT SCH ×2 (09:03→23:14)
[2020-08-29] MEDS: POLYETHYLENE GLYCOL 3350 119 GM BTL NGT SCH (09:03)
[2020-08-29] MEDS: ZINC SULFATE 220 MG CAPSULE (FP) NGT SCH (09:03)
[2020-08-29] MEDS: FAMOTIDINE 40 MG/5 ML ORAL SUSPENSION NGT SCH ×2 (09:03→23:15)
[2020-08-29] MEDS: BUDESONIDE/FORMETEROL FUMARATE 160/4.5 mcg INHALER IH SCH ×2 (09:04→23:16)
[2020-08-29] MEDS: CHOLECALCIFEROL (VIT D SOLUTION) 400 UNIT/1 ML DROPS GT SCH (09:04)
[2020-08-29 09:34] LABS: EPI CELLS 7 /uL (0-25.1); HYALINE CASTS 4 /uL (0-3.1); URINE APPEARANCE TURBID; URINE BACTERIA 1109 /uL (0-1359); URINE BILIRUBIN NEGATIVE (NEGATIVE); URINE COLOR YELLOW; URINE GLUCOSE (UA) 2+ (NEGATIVE); URINE KETONE NEGATIVE (NEGATIVE); URINE LEUK ESTERASE 1+ (NEGATIVE); URINE NITRITE NEGATIVE (NEGATIVE); URINE PROTEIN 1+ (NEGATIVE); URINE WBC 178 /uL (0-25.8)
[2020-08-29] MEDS: MIDAZOLAM IN 0.9 % SOD.CHLORID 100 MG/100 ML PLAST..BAG IVPB SCH (09:35)
[2020-08-29 09:54] LABS: URINE RBC 356.9 /uL (0-23.9); YEAST NO SEEN (NEGATIVE)
[2020-08-29] MEDS ORDERED: ACETAMINOPHEN 1000 MG/100 ML BAG IVPB PRN (15:54)
[2020-08-29] MEDS: CHLORHEXIDINE GLUCONATE 4% CLEANSER FOR DECOLONIZATION TP SCH (23:14)
[2020-08-29] MEDS: ATORVASTATIN CA 10 MG TABLET (FP) NGT SCH (23:14)
[2020-08-29] MEDS: SENNOSIDES 8.8 MG/5 ML BULK BOTTLE NGT SCH (23:15)
[2020-08-30] MEDS: DEXAMETHASONE SOD PHOSPHATE 4 MG/1 ML VIAL IVPUSH SCH ×4 (02:04→21:00)
[2020-08-30] MEDS: PROPOFOL 1,000,000 MCG/100 ML VIAL IVPB SCH ×2 (03:14→09:35)
[2020-08-30] MEDS: INSULIN SLIDING SCALE (NOVOLOG) 1 VIAL SQ SCH ×3 (07:04→16:24)
[2020-08-30 07:05] LABS: HEMATOCRIT 30.6 % (32.4-45.2); HEMOGLOBIN 9.6 GM/dL (10.7-15.3); MCH 26.1 pg (25.7-33.7); MCHC 31.5 g/dl (32.0-36.0); MEAN CELL VOLUME 82.8 fl (80-96); MEAN PLT VOLUME 9.7 fl (7.5-11.1); PLATELET COUNT 189 K/MM3 (134-434); RBC 3.69 M/mm3 (3.60-5.2); WHITE BLOOD COUNT 18.7 K/mm3 (4.0-10.0)
[2020-08-30 07:48] LABS: BLOOD UREA NITROGEN 22.9 mg/dL (7-18); CALCIUM 8.2 mg/dL (8.5-10.1); MAGNESIUM 2.2 mg/dL (1.8-2.4)
[2020-08-30 07:51] LABS: CREATININE 0.6 mg/dL (0.55-1.3)
[2020-08-30 07:52] LABS: PHOSPHOROUS 2.3 mg/dL (2.5-4.9)
[2020-08-30] MEDS ORDERED: PT OWN MED DRAWER 7, Y5N ONE ×2 (08:33→22:03)
[2020-08-30] MEDS: RAMIPRIL 5 MG CAPSULE NGT SCH (09:32)
[2020-08-30] MEDS: APIXABAN 5 MG TABLET NGT SCH ×2 (09:32→21:00)
[2020-08-30] MEDS: FAMOTIDINE 40 MG/5 ML ORAL SUSPENSION NGT SCH ×2 (09:34→21:00)
[2020-08-30] MEDS: ASCORBIC ACID 500 MG/5 ML UNIT DOSE CUP NGT SCH ×2 (09:34→21:00)
[2020-08-30] MEDS: CHOLECALCIFEROL (VIT D SOLUTION) 400 UNIT/1 ML DROPS GT SCH (09:35)
[2020-08-30] MEDS: BUDESONIDE/FORMETEROL FUMARATE 160/4.5 mcg INHALER IH SCH ×2 (09:35→21:00)
[2020-08-30] MEDS: AMINO ACIDS/PROTEIN HYDROLYS 30 ML LIQUID.PKT NGT SCH (09:36)
[2020-08-30] MEDS: POLYETHYLENE GLYCOL 3350 119 GM BTL NGT SCH (09:38)
[2020-08-30] MEDS: ASPIRIN 81 MG CHEWABLE TABLETS NGT SCH (09:38)
[2020-08-30] MEDS: MIDAZOLAM IN 0.9 % SOD.CHLORID 100 MG/100 ML PLAST..BAG IVPB SCH (10:00)
[2020-08-30] MEDS: ZINC SULFATE 220 MG CAPSULE (FP) NGT SCH (10:00)
[2020-08-30] MEDS ORDERED: VASOPRESSIN 20 UNITS/ML VIAL IV ONE (12:17)
[2020-08-30] MEDS: VASOPRESSIN 40 UNITS in SODIUM CHLORIDE 98 ML IVPB SCH (12:33)
[2020-08-30] MEDS: NOREPINEPHRINE BITARTRATE 8,000 MCG/500 ML BAG IVPB SCH (13:00)
[2020-08-30] MEDS ORDERED: PIPERACILLIN/TAZOBACTAM 3.375 GM VIAL IVPB ONE ×2 (13:08→17:41)
[2020-08-30] MEDS ORDERED: DEXTROSE 5%-WATER - 50 ML IVPB ONE ×2 (13:09→17:42)
[2020-08-30] MEDS: PIPERACILLIN/TAZOB 3.375 GM 3.375 GM in DEXTROSE 5%-WATER - 50 ML IVPB SCH ×2 (13:21→17:50)
[2020-08-30] MEDS: CHLORHEXIDINE GLUCONATE 4% CLEANSER FOR DECOLONIZATION TP SCH (21:00)
[2020-08-30] MEDS: ATORVASTATIN CA 10 MG TABLET (FP) NGT SCH (21:00)
[2020-08-30] MEDS: SENNOSIDES 8.8 MG/5 ML BULK BOTTLE NGT SCH (21:00)
[2020-08-31] MEDS: PIPERACILLIN/TAZOB 3.375 GM 3.375 GM in DEXTROSE 5%-WATER - 50 ML IVPB SCH ×3 (02:00→17:49)
[2020-08-31] MEDS: DEXAMETHASONE SOD PHOSPHATE 4 MG/1 ML VIAL IVPUSH SCH ×4 (02:00→21:00)
[2020-08-31] MEDS: INSULIN SLIDING SCALE (NOVOLOG) 1 VIAL SQ SCH ×5 (03:54→21:00)
[2020-08-31] MEDS ORDERED: PIPERACILLIN/TAZOBACTAM 3.375 GM VIAL IVPB ONE ×3 (04:02→17:46)
[2020-08-31] MEDS ORDERED: DEXTROSE 5%-WATER - 50 ML IVPB ONE ×3 (04:02→17:46)
[2020-08-31] MEDS ORDERED: RAPID SEQUENCE INTUBATION KIT NR ONE (06:34)
[2020-08-31 07:21] LABS: HEMATOCRIT 32.9 % (32.4-45.2); HEMOGLOBIN 10.1 GM/dL (10.7-15.3); MCH 25.3 pg (25.7-33.7); MCHC 30.6 g/dl (32.0-36.0); MEAN CELL VOLUME 82.6 fl (80-96); MEAN PLT VOLUME 10.1 fl (7.5-11.1); PLATELET COUNT 227 K/MM3 (134-434); RBC 3.99 M/mm3 (3.60-5.2); RDW 15.1 % (11.6-15.6); WHITE BLOOD COUNT 23.1 K/mm3 (4.0-10.0)
[2020-08-31 07:46] LABS: CALCIUM 8.5 mg/dL (8.5-10.1)
[2020-08-31 07:47] LABS: BLOOD UREA NITROGEN 27.5 mg/dL (7-18); MAGNESIUM 2.3 mg/dL (1.8-2.4)
[2020-08-31 07:50] LABS: CREATININE 0.5 mg/dL (0.55-1.3); PHOSPHOROUS 2.4 mg/dL (2.5-4.9)
[2020-08-31] MEDS ORDERED: NAPH,MB-DB/K PH,MBDB POWDER PACKET NGT ONE (08:16)
[2020-08-31] MEDS ORDERED: PT OWN MED DRAWER 7, Y5N ONE ×2 (08:44→23:50)
[2020-08-31] MEDS: AMINO ACIDS/PROTEIN HYDROLYS 30 ML LIQUID.PKT NGT SCH (08:55)
[2020-08-31] MEDS: RAMIPRIL 5 MG CAPSULE NGT SCH (09:01)
[2020-08-31] MEDS: APIXABAN 5 MG TABLET NGT SCH ×2 (09:02→21:00)
[2020-08-31] MEDS: ZINC SULFATE 220 MG CAPSULE (FP) NGT SCH (09:02)
[2020-08-31] MEDS: ASPIRIN 81 MG CHEWABLE TABLETS NGT SCH (09:02)
[2020-08-31] MEDS: POLYETHYLENE GLYCOL 3350 119 GM BTL NGT SCH (09:02)
[2020-08-31] MEDS: CHOLECALCIFEROL (VIT D SOLUTION) 400 UNIT/1 ML DROPS GT SCH (09:03)
[2020-08-31] MEDS: BUDESONIDE/FORMETEROL FUMARATE 160/4.5 mcg INHALER IH SCH ×2 (09:03→21:00)
[2020-08-31] MEDS: FAMOTIDINE 40 MG/5 ML ORAL SUSPENSION NGT SCH ×2 (09:03→21:00)
[2020-08-31] MEDS: ASCORBIC ACID 500 MG/5 ML UNIT DOSE CUP NGT SCH ×2 (09:03→21:00)
[2020-08-31] MEDS: MIDAZOLAM IN 0.9 % SOD.CHLORID 100 MG/100 ML PLAST..BAG IVPB SCH (10:21)
[2020-08-31] MEDS: PROPOFOL 1,000,000 MCG/100 ML VIAL IVPB SCH ×3 (11:04→21:00)
[2020-08-31] MEDS: VASOPRESSIN 40 UNITS in SODIUM CHLORIDE 98 ML IVPB SCH (12:38)
[2020-08-31] MEDS: NOREPINEPHRINE BITARTRATE 8,000 MCG/500 ML BAG IVPB SCH (17:45)
[2020-08-31] MEDS: ATORVASTATIN CA 10 MG TABLET (FP) NGT SCH (21:00)
[2020-08-31] MEDS: CHLORHEXIDINE GLUCONATE 4% CLEANSER FOR DECOLONIZATION TP SCH (21:00)
[2020-08-31] MEDS: SENNOSIDES 8.8 MG/5 ML BULK BOTTLE NGT SCH (21:00)
[2020-09-01] MEDS: PROPOFOL 1,000,000 MCG/100 ML VIAL IVPB SCH ×4 (00:54→17:00)
[2020-09-01] MEDS: PIPERACILLIN/TAZOB 3.375 GM 3.375 GM in DEXTROSE 5%-WATER - 50 ML IVPB SCH ×3 (02:00→17:50)
[2020-09-01] MEDS: DEXAMETHASONE SOD PHOSPHATE 4 MG/1 ML VIAL IVPUSH SCH ×4 (03:00→21:26)
[2020-09-01] MEDS ORDERED: DEXTROSE 5%-WATER - 50 ML IVPB ONE ×4 (05:07→21:25)
[2020-09-01] MEDS ORDERED: PIPERACILLIN/TAZOBACTAM 3.375 GM VIAL IVPB ONE ×4 (05:07→21:25)
[2020-09-01 06:44] LABS: BASO % 0.3 % (0-2.0); EOS % 0.2 % (0-4.5); HEMOGLOBIN 10.1 GM/dL (10.7-15.3); LYMPH % 3.7 % (8-40); MCH 25.6 pg (25.7-33.7); MCHC 31.4 g/dl (32.0-36.0); MEAN CELL VOLUME 81.6 fl (80-96); MEAN PLT VOLUME 9.9 fl (7.5-11.1); MONO % 5.3 % (3.8-10.2); NEUT % 90.5 % (42.8-82.8); PLATELET COUNT 233 K/MM3 (134-434); RBC 3.93 M/mm3 (3.60-5.2); RDW 14.9 % (11.6-15.6); WHITE BLOOD COUNT 15.6 K/mm3 (4.0-10.0)
[2020-09-01] MEDS: INSULIN SLIDING SCALE (NOVOLOG) 1 VIAL SQ SCH ×4 (06:56→21:27)
[2020-09-01 07:14] LABS: BLOOD UREA NITROGEN 22.9 mg/dL (7-18); CALCIUM 8.7 mg/dL (8.5-10.1); MAGNESIUM 2.3 mg/dL (1.8-2.4)
[2020-09-01 07:15] LABS: ALBUMIN 1.7 g/dl (3.4-5.0)
[2020-09-01 07:17] LABS: CREATININE 0.5 mg/dL (0.55-1.3); PHOSPHOROUS 2.7 mg/dL (2.5-4.9)
[2020-09-01 07:19] LABS: BILIRUBIN,TOTAL 0.5 mg/dL (0.2-1); TOT PROT 5.1 g/dl (6.4-8.2)
[2020-09-01] MEDS: AMINO ACIDS/PROTEIN HYDROLYS 30 ML LIQUID.PKT NGT SCH (09:00)
[2020-09-01] MEDS ORDERED: PT OWN MED DRAWER 7, Y5N ONE ×2 (09:19→21:25)
[2020-09-01] MEDS: NOREPINEPHRINE BITARTRATE 8,000 MCG/500 ML BAG IVPB SCH (09:25)
[2020-09-01] MEDS: RAMIPRIL 5 MG CAPSULE NGT SCH (09:26)
[2020-09-01] MEDS: BUDESONIDE/FORMETEROL FUMARATE 160/4.5 mcg INHALER IH SCH ×2 (09:26→21:28)
[2020-09-01] MEDS: FAMOTIDINE 40 MG/5 ML ORAL SUSPENSION NGT SCH ×2 (09:28→21:28)
[2020-09-01] MEDS: POLYETHYLENE GLYCOL 3350 119 GM BTL NGT SCH (09:28)
[2020-09-01] MEDS: MULTIVIT-MINERALS ORAL LIQUID PO SCH (09:28)
[2020-09-01] MEDS: ASPIRIN 81 MG CHEWABLE TABLETS NGT SCH (09:28)
[2020-09-01] MEDS: ZINC SULFATE 220 MG CAPSULE (FP) NGT SCH (09:28)
[2020-09-01] MEDS: ASCORBIC ACID 500 MG/5 ML UNIT DOSE CUP NGT SCH ×2 (09:28→21:28)
[2020-09-01] MEDS: APIXABAN 5 MG TABLET NGT SCH ×2 (09:28→21:26)
[2020-09-01] MEDS: CHOLECALCIFEROL (VIT D SOLUTION) 400 UNIT/1 ML DROPS GT SCH (09:28)
[2020-09-01 10:04] LABS: ANISOCYTOSIS 1+; MACROCYTOSIS 1+; PLATELET ESTIMATE NORMAL
[2020-09-01] MEDS: VASOPRESSIN 40 UNITS in SODIUM CHLORIDE 98 ML IVPB SCH (12:25)
[2020-09-01 14:26] LABS: ARTERIAL BLD GAS O2 SATURATION 98.6 mmHg (95-98); ARTERIAL BLOOD GAS BASE EXCESS 9.4 mmol/L (-2-2); ARTERIAL BLOOD GAS PO2 131.3 mmHg (80-100)
[2020-09-01 14:28] LABS: VENT MODE A/C; VENT RATE 26
[2020-09-01] MEDS: MIDAZOLAM IN 0.9 % SOD.CHLORID 100 MG/100 ML PLAST..BAG IVPB SCH (17:48)
[2020-09-01] MEDS: ATORVASTATIN CA 10 MG TABLET (FP) NGT SCH (21:26)
[2020-09-01] MEDS: CHLORHEXIDINE GLUCONATE 4% CLEANSER FOR DECOLONIZATION TP SCH (21:27)
[2020-09-01] MEDS: SENNOSIDES 8.8 MG/5 ML BULK BOTTLE NGT SCH (21:28)
[2020-09-01] MEDS: INSULIN (LEVEMIR) 100 UNITS/ML UNITS SQ SCH (21:45)
[2020-09-01] MEDS ORDERED: INSULIN (LEVEMIR) 100 UNITS/ML UNITS SQ SCH (22:00)
[2020-09-02] MEDS: PIPERACILLIN/TAZOB 3.375 GM 3.375 GM in DEXTROSE 5%-WATER - 50 ML IVPB SCH ×3 (01:20→18:40)
[2020-09-02] MEDS: DEXAMETHASONE SOD PHOSPHATE 4 MG/1 ML VIAL IVPUSH SCH ×4 (03:00→21:43)
[2020-09-02] MEDS: INSULIN (LEVEMIR) 100 UNITS/ML UNITS SQ SCH ×2 (06:25→21:59)
[2020-09-02] MEDS: INSULIN SLIDING SCALE (NOVOLOG) 1 VIAL SQ SCH ×4 (06:25→22:00)
[2020-09-02] MEDS: NOREPINEPHRINE BITARTRATE 8,000 MCG/500 ML BAG IVPB SCH (06:39)
[2020-09-02 07:10] LABS: HEMATOCRIT 33.6 % (32.4-45.2); HEMOGLOBIN 10.7 GM/dL (10.7-15.3); MCH 25.9 pg (25.7-33.7); MCHC 31.8 g/dl (32.0-36.0); MEAN CELL VOLUME 81.5 fl (80-96); MEAN PLT VOLUME 10.5 fl (7.5-11.1); PLATELET COUNT 254 K/MM3 (134-434); RBC 4.12 M/mm3 (3.60-5.2); RDW 14.4 % (11.6-15.6); WHITE BLOOD COUNT 18.1 K/mm3 (4.0-10.0)
[2020-09-02 07:29] LABS: ALBUMIN 1.7 g/dl (3.4-5.0); BLOOD UREA NITROGEN 19.6 mg/dL (7-18); CALCIUM 8.6 mg/dL (8.5-10.1); MAGNESIUM 2.1 mg/dL (1.8-2.4)
[2020-09-02 07:32] LABS: CREATININE 0.4 mg/dL (0.55-1.3)
[2020-09-02 07:34] LABS: BILIRUBIN,TOTAL 0.4 mg/dL (0.2-1)
[2020-09-02] MEDS: MIDAZOLAM IN 0.9 % SOD.CHLORID 100 MG/100 ML PLAST..BAG IVPB SCH ×2 (09:52→18:44)
[2020-09-02] MEDS: RAMIPRIL 5 MG CAPSULE NGT SCH (09:53)
[2020-09-02] MEDS: AMINO ACIDS/PROTEIN HYDROLYS 30 ML LIQUID.PKT NGT SCH (10:00)
[2020-09-02] MEDS ORDERED: DEXTROSE 5%-WATER - 50 ML IVPB ONE ×3 (10:03→21:29)
[2020-09-02] MEDS ORDERED: PT OWN MED DRAWER 7, Y5N ONE ×2 (10:03→21:29)
[2020-09-02] MEDS ORDERED: PIPERACILLIN/TAZOBACTAM 3.375 GM VIAL IVPB ONE ×3 (10:03→21:29)
[2020-09-02] MEDS: BUDESONIDE/FORMETEROL FUMARATE 160/4.5 mcg INHALER IH SCH ×2 (10:05→21:50)
[2020-09-02] MEDS: MULTIVIT-MINERALS ORAL LIQUID PO SCH (10:06)
[2020-09-02] MEDS: ASPIRIN 81 MG CHEWABLE TABLETS NGT SCH (10:07)
[2020-09-02] MEDS: CHOLECALCIFEROL (VIT D SOLUTION) 400 UNIT/1 ML DROPS GT SCH (10:07)
[2020-09-02] MEDS: ASCORBIC ACID 500 MG/5 ML UNIT DOSE CUP NGT SCH ×2 (10:07→21:50)
[2020-09-02] MEDS: APIXABAN 5 MG TABLET NGT SCH ×2 (10:07→21:43)
[2020-09-02] MEDS: POLYETHYLENE GLYCOL 3350 119 GM BTL NGT SCH (10:07)
[2020-09-02] MEDS: FAMOTIDINE 40 MG/5 ML ORAL SUSPENSION NGT SCH ×2 (10:07→21:49)
[2020-09-02] MEDS: ZINC SULFATE 220 MG CAPSULE (FP) NGT SCH (10:07)
[2020-09-02] MEDS: PROPOFOL 1,000,000 MCG/100 ML VIAL IVPB SCH (12:08)
[2020-09-02] MEDS: VASOPRESSIN 40 UNITS in SODIUM CHLORIDE 98 ML IVPB SCH ×2 (14:00→22:00)
[2020-09-02] MEDS ORDERED: METOPROLOL TARTRATE 5 MG/5 ML VIAL IVPUSH ONE (20:17)
[2020-09-02] MEDS ORDERED: METOPROLOL TARTRATE 5 MG/5 ML VIAL ONE (20:21)
[2020-09-02] MEDS: ATORVASTATIN CA 10 MG TABLET (FP) NGT SCH (21:43)
[2020-09-02] MEDS: CHLORHEXIDINE GLUCONATE 4% CLEANSER FOR DECOLONIZATION TP SCH (21:44)
[2020-09-02] MEDS: SENNOSIDES 8.8 MG/5 ML BULK BOTTLE NGT SCH (21:50)
[2020-09-03] MEDS: PIPERACILLIN/TAZOB 3.375 GM 3.375 GM in DEXTROSE 5%-WATER - 50 ML IVPB SCH ×3 (02:31→17:12)
[2020-09-03] MEDS: DEXAMETHASONE SOD PHOSPHATE 4 MG/1 ML VIAL IVPUSH SCH ×4 (02:31→21:03)
[2020-09-03] MEDS: INSULIN (LEVEMIR) 100 UNITS/ML UNITS SQ SCH ×2 (06:03→21:39)
[2020-09-03] MEDS: INSULIN SLIDING SCALE (NOVOLOG) 1 VIAL SQ SCH ×4 (06:03→21:39)
[2020-09-03] MEDS: NOREPINEPHRINE BITARTRATE 8,000 MCG/500 ML BAG IVPB SCH (06:04)
[2020-09-03 07:22] LABS: MCH 25.8 pg (25.7-33.7); MCHC 31.4 g/dl (32.0-36.0); MEAN CELL VOLUME 82.1 fl (80-96); MEAN PLT VOLUME 10.6 fl (7.5-11.1); PLATELET COUNT 283 K/MM3 (134-434); RBC 3.89 M/mm3 (3.60-5.2); RDW 14.7 % (11.6-15.6); WHITE BLOOD COUNT 21.6 K/mm3 (4.0-10.0)
[2020-09-03 07:24] LABS: ALBUMIN 1.7 g/dl (3.4-5.0); BLOOD UREA NITROGEN 25.6 mg/dL (7-18)
[2020-09-03 07:27] LABS: CALCIUM 7.7 mg/dL (8.5-10.1); CREATININE 0.4 mg/dL (0.55-1.3); MAGNESIUM 1.8 mg/dL (1.8-2.4); PHOSPHOROUS 3.1 mg/dL (2.5-4.9)
[2020-09-03 07:29] LABS: BILIRUBIN,TOTAL 0.3 mg/dL (0.2-1); TOT PROT 4.7 g/dl (6.4-8.2)
[2020-09-03] MEDS: AMINO ACIDS/PROTEIN HYDROLYS 30 ML LIQUID.PKT NGT SCH (09:00)
[2020-09-03] MEDS ORDERED: DEXTROSE 5%-WATER - 50 ML IVPB ONE ×3 (10:12→20:53)
[2020-09-03] MEDS ORDERED: PIPERACILLIN/TAZOBACTAM 3.375 GM VIAL IVPB ONE ×3 (10:12→20:53)
[2020-09-03] MEDS: PROPOFOL 1,000,000 MCG/100 ML VIAL IVPB SCH ×2 (10:17)
[2020-09-03] MEDS: APIXABAN 5 MG TABLET NGT SCH ×2 (10:19→21:03)
[2020-09-03] MEDS: ZINC SULFATE 220 MG CAPSULE (FP) NGT SCH (10:19)
[2020-09-03] MEDS: RAMIPRIL 5 MG CAPSULE NGT SCH (10:19)
[2020-09-03] MEDS: CHOLECALCIFEROL (VIT D SOLUTION) 400 UNIT/1 ML DROPS GT SCH (10:20)
[2020-09-03] MEDS: FAMOTIDINE 40 MG/5 ML ORAL SUSPENSION NGT SCH ×2 (10:21→21:04)
[2020-09-03] MEDS: ASCORBIC ACID 500 MG/5 ML UNIT DOSE CUP NGT SCH ×2 (10:21→21:04)
[2020-09-03] MEDS: BUDESONIDE/FORMETEROL FUMARATE 160/4.5 mcg INHALER IH SCH (10:22)
[2020-09-03] MEDS: MULTIVIT-MINERALS ORAL LIQUID PO SCH (10:29)
[2020-09-03] MEDS: ASPIRIN 81 MG CHEWABLE TABLETS NGT SCH (10:29)
[2020-09-03] MEDS: POLYETHYLENE GLYCOL 3350 119 GM BTL NGT SCH (10:31)
[2020-09-03] MEDS: METOPROLOL TARTRATE 5 MG/5 ML VIAL IVPUSH PRN ×2 (15:00→23:10)
[2020-09-03] MEDS: VASOPRESSIN 40 UNITS in SODIUM CHLORIDE 98 ML IVPB SCH (15:53)
[2020-09-03] MEDS ORDERED: METOPROLOL TARTRATE 5 MG/5 ML VIAL IVPUSH ONE (17:45)
[2020-09-03] MEDS ORDERED: VASOPRESSIN 20 UNITS/ML VIAL IV ONE (19:25)
[2020-09-03] MEDS ORDERED: PT OWN MED DRAWER 7, Y5N ONE ×2 (20:53→22:15)
[2020-09-03] MEDS: ATORVASTATIN CA 10 MG TABLET (FP) NGT SCH (21:03)
[2020-09-03] MEDS: CHLORHEXIDINE GLUCONATE 4% CLEANSER FOR DECOLONIZATION TP SCH (21:04)
[2020-09-03] MEDS: SENNOSIDES 8.8 MG/5 ML BULK BOTTLE NGT SCH (21:04)
[2020-09-03] MEDS: MIDAZOLAM IN 0.9 % SOD.CHLORID 100 MG/100 ML PLAST..BAG IVPB SCH (21:04)
[2020-09-04] MEDS: DEXAMETHASONE SOD PHOSPHATE 4 MG/1 ML VIAL IVPUSH SCH ×3 (02:44→21:37)
[2020-09-04] MEDS: PIPERACILLIN/TAZOB 3.375 GM 3.375 GM in DEXTROSE 5%-WATER - 50 ML IVPB SCH ×3 (02:44→17:04)
[2020-09-04] MEDS: INSULIN SLIDING SCALE (NOVOLOG) 1 VIAL SQ SCH ×4 (06:18→21:52)
[2020-09-04] MEDS: INSULIN (LEVEMIR) 100 UNITS/ML UNITS SQ SCH ×2 (06:18→21:53)
[2020-09-04 07:23] LABS: BASO % 0.3 % (0-2.0); EOS % 0.5 % (0-4.5); HEMOGLOBIN 9.5 GM/dL (10.7-15.3); LYMPH % 2.1 % (8-40); MCH 25.8 pg (25.7-33.7); MCHC 31.9 g/dl (32.0-36.0); MEAN CELL VOLUME 81.1 fl (80-96); MEAN PLT VOLUME 9.7 fl (7.5-11.1); MONO % 0.5 % (3.8-10.2); NEUT % 96.6 % (42.8-82.8); PLATELET COUNT 262 K/MM3 (134-434); RBC 3.69 M/mm3 (3.60-5.2); RDW 14.8 % (11.6-15.6); WHITE BLOOD COUNT 24.3 K/mm3 (4.0-10.0)
[2020-09-04 07:49] LABS: BLOOD UREA NITROGEN 24.2 mg/dL (7-18); CALCIUM 7.9 mg/dL (8.5-10.1)
[2020-09-04 07:50] LABS: ALBUMIN 1.7 g/dl (3.4-5.0)
[2020-09-04 07:53] LABS: CREATININE 0.3 mg/dL (0.55-1.3); PHOSPHOROUS 2.7 mg/dL (2.5-4.9)
[2020-09-04 07:54] LABS: BILIRUBIN,TOTAL 0.5 mg/dL (0.2-1); TOT PROT 4.7 g/dl (6.4-8.2)
[2020-09-04] MEDS ORDERED: PIPERACILLIN/TAZOBACTAM 3.375 GM VIAL IVPB ONE ×2 (08:58→17:01)
[2020-09-04] MEDS ORDERED: DEXTROSE 5%-WATER - 50 ML IVPB ONE ×2 (08:59→17:01)
[2020-09-04] MEDS: AMINO ACIDS/PROTEIN HYDROLYS 30 ML LIQUID.PKT NGT SCH (09:00)
[2020-09-04] MEDS: PROPOFOL 1,000,000 MCG/100 ML VIAL IVPB SCH (09:00)
[2020-09-04] MEDS: APIXABAN 5 MG TABLET NGT SCH ×2 (09:05→21:39)
[2020-09-04] MEDS: ASCORBIC ACID 500 MG/5 ML UNIT DOSE CUP NGT SCH ×2 (09:06→21:40)
[2020-09-04] MEDS: FAMOTIDINE 40 MG/5 ML ORAL SUSPENSION NGT SCH ×2 (09:06→21:40)
[2020-09-04] MEDS: ASPIRIN 81 MG CHEWABLE TABLETS NGT SCH (09:06)
[2020-09-04] MEDS: CHOLECALCIFEROL (VIT D SOLUTION) 400 UNIT/1 ML DROPS GT SCH (09:06)
[2020-09-04] MEDS: NOREPINEPHRINE BITARTRATE 8,000 MCG/500 ML BAG IVPB SCH ×2 (09:08→09:15)
[2020-09-04] MEDS: RAMIPRIL 5 MG CAPSULE NGT SCH (09:08)
[2020-09-04] MEDS: ZINC SULFATE 220 MG CAPSULE (FP) NGT SCH (09:08)
[2020-09-04] MEDS: MULTIVIT-MINERALS ORAL LIQUID PO SCH (09:15)
[2020-09-04 09:45] LABS: ANISOCYTOSIS 0; MACROCYTOSIS 0; PLATELET ESTIMATE NORMAL
[2020-09-04] MEDS: VASOPRESSIN 40 UNITS in SODIUM CHLORIDE 98 ML IVPB SCH (17:03)
[2020-09-04] MEDS: MIDAZOLAM IN 0.9 % SOD.CHLORID 100 MG/100 ML PLAST..BAG IVPB SCH (21:34)
[2020-09-04] MEDS: ATORVASTATIN CA 10 MG TABLET (FP) NGT SCH (21:39)
[2020-09-04] MEDS: CHLORHEXIDINE GLUCONATE 4% CLEANSER FOR DECOLONIZATION TP SCH (21:39)
[2020-09-05] MEDS ORDERED: DEXTROSE 5%-WATER - 50 ML IVPB ONE ×3 (01:06→17:47)
[2020-09-05] MEDS ORDERED: PIPERACILLIN/TAZOBACTAM 3.375 GM VIAL IVPB ONE ×3 (01:06→17:47)
[2020-09-05] MEDS: PIPERACILLIN/TAZOB 3.375 GM 3.375 GM in DEXTROSE 5%-WATER - 50 ML IVPB SCH ×3 (01:10→17:50)
[2020-09-05] MEDS: INSULIN SLIDING SCALE (NOVOLOG) 1 VIAL SQ SCH ×4 (06:16→21:51)
[2020-09-05] MEDS: INSULIN (LEVEMIR) 100 UNITS/ML UNITS SQ SCH ×2 (06:17→21:53)
[2020-09-05] MEDS: PROPOFOL 1,000,000 MCG/100 ML VIAL IVPB SCH ×2 (06:29→09:33)
[2020-09-05] MEDS ORDERED: ACETAMINOPHEN 1000 MG/100 ML BAG IVPB PRN (06:33)
[2020-09-05 07:28] LABS: HEMATOCRIT 28.4 % (32.4-45.2); HEMOGLOBIN 9.2 GM/dL (10.7-15.3); MCHC 32.2 g/dl (32.0-36.0); MEAN CELL VOLUME 80.6 fl (80-96); MEAN PLT VOLUME 9.3 fl (7.5-11.1); PLATELET COUNT 224 K/MM3 (134-434); RBC 3.53 M/mm3 (3.60-5.2); RDW 14.7 % (11.6-15.6); WHITE BLOOD COUNT 14.1 K/mm3 (4.0-10.0)
[2020-09-05] MEDS ORDERED: METOPROLOL TARTRATE 5 MG/5 ML VIAL ONE (07:57)
[2020-09-05] MEDS: METOPROLOL TARTRATE 5 MG/5 ML VIAL IVPUSH PRN ×2 (08:00→14:34)
[2020-09-05 08:12] LABS: CALCIUM 7.9 mg/dL (8.5-10.1)
[2020-09-05] MEDS: NOREPINEPHRINE BITARTRATE 8,000 MCG/500 ML BAG IVPB SCH (08:12)
[2020-09-05 08:13] LABS: ALBUMIN 1.7 g/dl (3.4-5.0); BLOOD UREA NITROGEN 16.7 mg/dL (7-18); MAGNESIUM 1.9 mg/dL (1.8-2.4)
[2020-09-05 08:16] LABS: CREATININE 0.3 mg/dL (0.55-1.3); PHOSPHOROUS 2.4 mg/dL (2.5-4.9)
[2020-09-05 08:19] LABS: BILIRUBIN,TOTAL 0.8 mg/dL (0.2-1); TOT PROT 4.7 g/dl (6.4-8.2)
[2020-09-05] MEDS ORDERED: PT OWN MED DRAWER 7, Y5N ONE ×2 (09:19→20:54)
[2020-09-05] MEDS: MULTIVIT-MINERALS ORAL LIQUID PO SCH (09:25)
[2020-09-05] MEDS: FAMOTIDINE 40 MG/5 ML ORAL SUSPENSION NGT SCH ×2 (09:25→21:35)
[2020-09-05] MEDS: CHOLECALCIFEROL (VIT D SOLUTION) 400 UNIT/1 ML DROPS GT SCH (09:25)
[2020-09-05] MEDS: AMINO ACIDS/PROTEIN HYDROLYS 30 ML LIQUID.PKT NGT SCH (09:25)
[2020-09-05] MEDS: ASCORBIC ACID 500 MG/5 ML UNIT DOSE CUP NGT SCH ×2 (09:26→21:35)
[2020-09-05] MEDS: RAMIPRIL 5 MG CAPSULE NGT SCH (09:32)
[2020-09-05] MEDS: ZINC SULFATE 220 MG CAPSULE (FP) NGT SCH (09:33)
[2020-09-05] MEDS: DEXAMETHASONE SOD PHOSPHATE 4 MG/1 ML VIAL IVPUSH SCH ×2 (09:33→22:03)
[2020-09-05] MEDS: ASPIRIN 81 MG CHEWABLE TABLETS NGT SCH (09:33)
[2020-09-05] MEDS: APIXABAN 5 MG TABLET NGT SCH ×2 (09:33→21:33)
[2020-09-05] MEDS ORDERED: METOPROLOL TARTRATE 5 MG/5 ML VIAL IVPUSH STA (10:35)
[2020-09-05] MEDS: KCL 10 MEQ IVPB 10 MEQ/100 ML INFUS.BAG IVPB SCH ×2 (10:47→11:54)
[2020-09-05] MEDS: VASOPRESSIN 40 UNITS in SODIUM CHLORIDE 98 ML IVPB SCH (13:38)
[2020-09-05] MEDS: ATORVASTATIN CA 10 MG TABLET (FP) NGT SCH (21:33)
[2020-09-05] MEDS: CHLORHEXIDINE GLUCONATE 4% CLEANSER FOR DECOLONIZATION TP SCH (21:34)
[2020-09-06] MEDS ORDERED: DEXTROSE 5%-WATER - 50 ML IVPB ONE ×3 (01:34→17:24)
[2020-09-06] MEDS ORDERED: PIPERACILLIN/TAZOBACTAM 3.375 GM VIAL IVPB ONE ×3 (01:34→17:24)
[2020-09-06] MEDS: PIPERACILLIN/TAZOB 3.375 GM 3.375 GM in DEXTROSE 5%-WATER - 50 ML IVPB SCH ×3 (01:46→17:26)
[2020-09-06] MEDS ORDERED: VASOPRESSIN 20 UNITS/ML VIAL IV ONE (01:49)
[2020-09-06] MEDS: DEXMEDETOMIDINE IN 0.9 % NACL 400 MCG/100 ML VIAL IVPB SCH (06:04)
[2020-09-06] MEDS: INSULIN SLIDING SCALE (NOVOLOG) 1 VIAL SQ SCH ×4 (06:35→21:17)
[2020-09-06] MEDS: INSULIN (LEVEMIR) 100 UNITS/ML UNITS SQ SCH ×2 (06:36→21:03)
[2020-09-06] MEDS: NOREPINEPHRINE BITARTRATE 8,000 MCG/500 ML BAG IVPB SCH (06:45)
[2020-09-06] MEDS: PROPOFOL 1,000,000 MCG/100 ML VIAL IVPB SCH (07:45)
[2020-09-06 08:03] LABS: BLOOD UREA NITROGEN 18.8 mg/dL (7-18); CALCIUM 7.9 mg/dL (8.5-10.1)
[2020-09-06 08:04] LABS: MAGNESIUM 1.9 mg/dL (1.8-2.4)
[2020-09-06 08:07] LABS: CREATININE 0.2 mg/dL (0.55-1.3); PHOSPHOROUS 2.1 mg/dL (2.5-4.9)
[2020-09-06 08:31] LABS: HEMOGLOBIN 9.3 GM/dL (10.7-15.3); RBC 3.62 M/mm3 (3.60-5.2); WHITE BLOOD COUNT 14.8 K/mm3 (4.0-10.0)
[2020-09-06] MEDS: AMINO ACIDS/PROTEIN HYDROLYS 30 ML LIQUID.PKT NGT SCH (08:31)
[2020-09-06 08:32] LABS: HEMATOCRIT 28.8 % (32.4-45.2); MCH 25.6 pg (25.7-33.7); MCHC 32.1 g/dl (32.0-36.0); MEAN CELL VOLUME 79.7 fl (80-96); MEAN PLT VOLUME 9.6 fl (7.5-11.1); PLATELET COUNT 228 K/MM3 (134-434); RDW 14.8 % (11.6-15.6)
[2020-09-06] MEDS: METOPROLOL TARTRATE 5 MG/5 ML VIAL IVPUSH PRN (09:20)
[2020-09-06] MEDS: APIXABAN 5 MG TABLET NGT SCH ×2 (09:26→21:05)
[2020-09-06] MEDS: ZINC SULFATE 220 MG CAPSULE (FP) NGT SCH (09:26)
[2020-09-06] MEDS: ASPIRIN 81 MG CHEWABLE TABLETS NGT SCH (09:26)
[2020-09-06] MEDS: CHOLECALCIFEROL (VIT D SOLUTION) 400 UNIT/1 ML DROPS GT SCH (09:27)
[2020-09-06] MEDS: FAMOTIDINE 40 MG/5 ML ORAL SUSPENSION NGT SCH ×2 (09:27→21:05)
[2020-09-06] MEDS ORDERED: MAGNESIUM 1GM/D5W - 1 GM/100 ML IVPB IVPB ONE (09:30)
[2020-09-06] MEDS: RAMIPRIL 5 MG CAPSULE NGT SCH (09:44)
[2020-09-06] MEDS: MULTIVIT-MINERALS ORAL LIQUID PO SCH (09:46)
[2020-09-06] MEDS: ASCORBIC ACID 500 MG/5 ML UNIT DOSE CUP NGT SCH ×2 (09:47→21:04)
[2020-09-06] MEDS: DEXAMETHASONE SOD PHOSPHATE 4 MG/1 ML VIAL IVPUSH SCH (09:47)
[2020-09-06] MEDS ORDERED: PT OWN MED DRAWER 7, Y5N ONE ×3 (09:52→20:46)
[2020-09-06] MEDS ORDERED: POTASSIUM PHOSPHATE 15 MM in SODIUM CHLORIDE 250 ML IVPB ONE (10:00)
[2020-09-06] MEDS: POLYETHYLENE GLYCOL 3350 119 GM BTL NGT SCH (10:32)
[2020-09-06] MEDS: NOREPINEPHRINE BITARTRATE IV SCH (10:54)
[2020-09-06] MEDS: SODIUM CHLORIDE IV SCH (10:54)
[2020-09-06] MEDS: VASOPRESSIN 40 UNITS in SODIUM CHLORIDE 98 ML IVPB SCH (12:30)
[2020-09-06] MEDS: ATORVASTATIN CA 10 MG TABLET (FP) NGT SCH (21:04)
[2020-09-06] MEDS: SENNOSIDES 8.8 MG/5 ML BULK BOTTLE NGT SCH (21:05)
[2020-09-06] MEDS: CHLORHEXIDINE GLUCONATE 4% CLEANSER FOR DECOLONIZATION TP SCH (21:05)
[2020-09-07] MEDS: DEXMEDETOMIDINE IN 0.9 % NACL 400 MCG/100 ML VIAL IVPB SCH (01:04)
[2020-09-07] MEDS ORDERED: PIPERACILLIN/TAZOBACTAM 3.375 GM VIAL IVPB ONE ×2 (01:16→08:54)
[2020-09-07] MEDS ORDERED: DEXTROSE 5%-WATER - 50 ML IVPB ONE ×2 (01:17→08:54)
[2020-09-07] MEDS: PIPERACILLIN/TAZOB 3.375 GM 3.375 GM in DEXTROSE 5%-WATER - 50 ML IVPB SCH ×2 (01:19→09:35)
[2020-09-07] MEDS: METOPROLOL TARTRATE 5 MG/5 ML VIAL IVPUSH PRN ×2 (02:50→12:30)
[2020-09-07] MEDS: PROPOFOL 1,000,000 MCG/100 ML VIAL IVPB SCH ×3 (04:00→12:30)
[2020-09-07] MEDS: INSULIN SLIDING SCALE (NOVOLOG) 1 VIAL SQ SCH ×4 (06:05→22:50)
[2020-09-07] MEDS: INSULIN (LEVEMIR) 100 UNITS/ML UNITS SQ SCH ×2 (06:25→22:04)
[2020-09-07 07:20] LABS: BASO % 0.1 % (0-2.0); EOS % 0.5 % (0-4.5); LYMPH % 2.5 % (8-40); MCH 25.9 pg (25.7-33.7); MCHC 32.1 g/dl (32.0-36.0); MEAN CELL VOLUME 80.7 fl (80-96); MEAN PLT VOLUME 9.7 fl (7.5-11.1); NEUT % 94.9 % (42.8-82.8); PLATELET COUNT 202 K/MM3 (134-434); RBC 3.84 M/mm3 (3.60-5.2); RDW 14.3 % (11.6-15.6); WHITE BLOOD COUNT 15.2 K/mm3 (4.0-10.0)
[2020-09-07] MEDS: AMINO ACIDS/PROTEIN HYDROLYS 30 ML LIQUID.PKT NGT SCH (07:26)
[2020-09-07 07:28] LABS: ALBUMIN 1.6 g/dl (3.4-5.0); CALCIUM 8.7 mg/dL (8.5-10.1); MAGNESIUM 2.3 mg/dL (1.8-2.4)
[2020-09-07 07:31] LABS: CREATININE 0.3 mg/dL (0.55-1.3); PHOSPHOROUS 2.3 mg/dL (2.5-4.9)
[2020-09-07 07:33] LABS: BILIRUBIN,TOTAL 0.6 mg/dL (0.2-1); TOT PROT 5.2 g/dl (6.4-8.2)
[2020-09-07] MEDS ORDERED: PT OWN MED DRAWER 7, Y5N ONE ×3 (08:54→21:19)
[2020-09-07 08:58] LABS: ANISOCYTOSIS 0; MACROCYTOSIS 0; PLATELET ESTIMATE NORMAL
[2020-09-07] MEDS ORDERED: POTASSIUM CHLORIDE 20 MEQ PREMIX IVPB 100 ML IVPB ONE (09:00)
[2020-09-07] MEDS ORDERED: KCL 10 MEQ IVPB 10 MEQ/100 ML INFUS.BAG IVPB SCH (09:00)
[2020-09-07] MEDS ORDERED: NAPH,MB-DB/K PH,MBDB POWDER PACKET PO ONE (09:00)
[2020-09-07] MEDS: RAMIPRIL 5 MG CAPSULE NGT SCH (09:26)
[2020-09-07] MEDS: MULTIVIT-MINERALS ORAL LIQUID PO SCH (09:26)
[2020-09-07] MEDS: ASPIRIN 81 MG CHEWABLE TABLETS NGT SCH (09:26)
[2020-09-07] MEDS: ZINC SULFATE 220 MG CAPSULE (FP) NGT SCH (09:27)
[2020-09-07] MEDS: FAMOTIDINE 40 MG/5 ML ORAL SUSPENSION NGT SCH ×2 (09:27→21:31)
[2020-09-07] MEDS: APIXABAN 5 MG TABLET NGT SCH ×2 (09:27→22:04)
[2020-09-07] MEDS: DEXAMETHASONE SOD PHOSPHATE 4 MG/1 ML VIAL IVPUSH SCH (09:27)
[2020-09-07] MEDS: CHOLECALCIFEROL (VIT D SOLUTION) 400 UNIT/1 ML DROPS GT SCH (09:28)
[2020-09-07] MEDS: ASCORBIC ACID 500 MG/5 ML UNIT DOSE CUP NGT SCH ×2 (09:28→21:30)
[2020-09-07] MEDS: SODIUM CHLORIDE IV SCH (09:29)
[2020-09-07] MEDS: NOREPINEPHRINE BITARTRATE IV SCH (09:29)
[2020-09-07] MEDS: POLYETHYLENE GLYCOL 3350 119 GM BTL NGT SCH (09:33)
[2020-09-07] MEDS: NOREPINEPHRINE BITARTRATE 8,000 MCG in SODIUM CHLORIDE 492 ML IV SCH (10:00)
[2020-09-07] MEDS: FENTANYL NS IVPB 500 MCG/100 ML BAG IVPB SCH ×2 (12:30→17:45)
[2020-09-07] MEDS: VASOPRESSIN 40 UNITS in SODIUM CHLORIDE 98 ML IVPB SCH ×2 (12:30→14:16)
[2020-09-07] MEDS: ATORVASTATIN CA 10 MG TABLET (FP) NGT SCH (21:30)
[2020-09-07] MEDS: SENNOSIDES 8.8 MG/5 ML BULK BOTTLE NGT SCH (21:31)
[2020-09-07] MEDS: CHLORHEXIDINE GLUCONATE 4% CLEANSER FOR DECOLONIZATION TP SCH (22:04)
[2020-09-08] MEDS: DEXMEDETOMIDINE IN 0.9 % NACL 400 MCG/100 ML VIAL IVPB SCH (00:40)
[2020-09-08] MEDS: INSULIN (LEVEMIR) 100 UNITS/ML UNITS SQ SCH ×2 (06:30→21:36)
[2020-09-08] MEDS: INSULIN SLIDING SCALE (NOVOLOG) 1 VIAL SQ SCH ×4 (06:30→21:36)
[2020-09-08] MEDS ORDERED: PT OWN MED DRAWER 7, Y5N ONE ×2 (06:39→09:26)
[2020-09-08 07:19] LABS: ALBUMIN 1.4 g/dl (3.4-5.0); CALCIUM 8.1 mg/dL (8.5-10.1)
[2020-09-08 07:22] LABS: CREATININE 0.2 mg/dL (0.55-1.3); PHOSPHOROUS 1.5 mg/dL (2.5-4.9)
[2020-09-08 07:24] LABS: BILIRUBIN,TOTAL 0.4 mg/dL (0.2-1); TOT PROT 4.7 g/dl (6.4-8.2)
[2020-09-08 07:26] LABS: EOS % 1.7 % (0-4.5); HEMATOCRIT 25.3 % (32.4-45.2); LYMPH % 4.3 % (8-40); MCH 25.6 pg (25.7-33.7); MCHC 31.6 g/dl (32.0-36.0); MEAN CELL VOLUME 80.8 fl (80-96); MEAN PLT VOLUME 9.4 fl (7.5-11.1); MONO % 2.4 % (3.8-10.2); NEUT % 91.6 % (42.8-82.8); PLATELET COUNT 189 K/MM3 (134-434); RBC 3.13 M/mm3 (3.60-5.2); WHITE BLOOD COUNT 11.4 K/mm3 (4.0-10.0)
[2020-09-08] MEDS ORDERED: NAPH,MB-DB/K PH,MBDB POWDER PACKET PO ONE (09:00)
[2020-09-08] MEDS: PROPOFOL 1,000,000 MCG/100 ML VIAL IVPB SCH ×3 (09:35→20:00)
[2020-09-08] MEDS: AMINO ACIDS/PROTEIN HYDROLYS 30 ML LIQUID.PKT NGT SCH (09:35)
[2020-09-08] MEDS: APIXABAN 5 MG TABLET NGT SCH ×2 (09:36→21:31)
[2020-09-08] MEDS: DEXAMETHASONE SOD PHOSPHATE 4 MG/1 ML VIAL IVPUSH SCH (09:36)
[2020-09-08] MEDS: ASPIRIN 81 MG CHEWABLE TABLETS NGT SCH (09:36)
[2020-09-08] MEDS: NOREPINEPHRINE BITARTRATE 8,000 MCG in SODIUM CHLORIDE 492 ML IV SCH (09:37)
[2020-09-08] MEDS: MULTIVIT-MINERALS ORAL LIQUID PO SCH (09:37)
[2020-09-08] MEDS: POLYETHYLENE GLYCOL 3350 119 GM BTL NGT SCH (09:38)
[2020-09-08] MEDS: ZINC SULFATE 220 MG CAPSULE (FP) NGT SCH (09:38)
[2020-09-08] MEDS: ASCORBIC ACID 500 MG/5 ML UNIT DOSE CUP NGT SCH ×2 (09:38→21:32)
[2020-09-08] MEDS: CHOLECALCIFEROL (VIT D SOLUTION) 400 UNIT/1 ML DROPS GT SCH (09:39)
[2020-09-08] MEDS: FAMOTIDINE 40 MG/5 ML ORAL SUSPENSION NGT SCH ×2 (09:39→21:31)
[2020-09-08 10:43] LABS: ANISOCYTOSIS 1+; MACROCYTOSIS 1+; PLATELET ESTIMATE NORMAL
[2020-09-08] MEDS: FENTANYL NS IVPB 500 MCG/100 ML BAG IVPB SCH (12:38)
[2020-09-08] MEDS: VASOPRESSIN 40 UNITS in SODIUM CHLORIDE 98 ML IVPB SCH (12:39)
[2020-09-08] MEDS: CHLORHEXIDINE GLUCONATE 4% CLEANSER FOR DECOLONIZATION TP SCH (21:27)
[2020-09-08] MEDS: ATORVASTATIN CA 10 MG TABLET (FP) NGT SCH (21:31)
[2020-09-08] MEDS: SENNOSIDES 8.8 MG/5 ML BULK BOTTLE NGT SCH (21:32)
[2020-09-09] MEDS: PROPOFOL 1,000,000 MCG/100 ML VIAL IVPB SCH ×2 (04:00→10:17)
[2020-09-09] MEDS: DEXMEDETOMIDINE IN 0.9 % NACL 400 MCG/100 ML VIAL IVPB SCH (05:04)
[2020-09-09] MEDS: INSULIN (LEVEMIR) 100 UNITS/ML UNITS SQ SCH ×2 (06:24→21:45)
[2020-09-09] MEDS: INSULIN SLIDING SCALE (NOVOLOG) 1 VIAL SQ SCH ×4 (06:25→21:46)
[2020-09-09 07:34] LABS: BASO % 0.2 % (0-2.0); EOS % 1.2 % (0-4.5); HEMATOCRIT 23.7 % (32.4-45.2); HEMOGLOBIN 7.7 GM/dL (10.7-15.3); LYMPH % 6.3 % (8-40); MCH 26.2 pg (25.7-33.7); MCHC 32.5 g/dl (32.0-36.0); MEAN CELL VOLUME 80.7 fl (80-96); MEAN PLT VOLUME 9.2 fl (7.5-11.1); MONO % 2.9 % (3.8-10.2); NEUT % 89.4 % (42.8-82.8); PLATELET COUNT 194 K/MM3 (134-434); RBC 2.94 M/mm3 (3.60-5.2); RDW 14.7 % (11.6-15.6); WHITE BLOOD COUNT 10.1 K/mm3 (4.0-10.0)
[2020-09-09 07:35] LABS: ALBUMIN 1.5 g/dl (3.4-5.0); BLOOD UREA NITROGEN 23.4 mg/dL (7-18); CALCIUM 8.3 mg/dL (8.5-10.1); MAGNESIUM 1.8 mg/dL (1.8-2.4)
[2020-09-09 07:37] LABS: CREATININE 0.3 mg/dL (0.55-1.3); PHOSPHOROUS 1.8 mg/dL (2.5-4.9)
[2020-09-09 07:39] LABS: BILIRUBIN,TOTAL 0.4 mg/dL (0.2-1); TOT PROT 4.8 g/dl (6.4-8.2)
[2020-09-09] MEDS ORDERED: PT OWN MED DRAWER 7, Y5N ONE (09:24)
[2020-09-09 09:55] LABS: ANISOCYTOSIS 1+; MACROCYTOSIS 0; PLATELET ESTIMATE NORMAL; TARGET CELLS 1+
[2020-09-09] MEDS: AMINO ACIDS/PROTEIN HYDROLYS 30 ML LIQUID.PKT NGT SCH (09:59)
[2020-09-09] MEDS: CHOLECALCIFEROL (VIT D SOLUTION) 400 UNIT/1 ML DROPS GT SCH (10:00)
[2020-09-09] MEDS: FAMOTIDINE 40 MG/5 ML ORAL SUSPENSION NGT SCH ×2 (10:00→21:20)
[2020-09-09] MEDS: MULTIVIT-MINERALS ORAL LIQUID PO SCH (10:00)
[2020-09-09] MEDS: DEXAMETHASONE SOD PHOSPHATE 4 MG/1 ML VIAL IVPUSH SCH (10:00)
[2020-09-09] MEDS: ZINC SULFATE 220 MG CAPSULE (FP) NGT SCH (10:00)
[2020-09-09] MEDS: ASPIRIN 81 MG CHEWABLE TABLETS NGT SCH (10:00)
[2020-09-09] MEDS: ASCORBIC ACID 500 MG/5 ML UNIT DOSE CUP NGT SCH ×2 (10:00→21:32)
[2020-09-09] MEDS: NOREPINEPHRINE BITARTRATE 8,000 MCG in SODIUM CHLORIDE 492 ML IV SCH (10:01)
[2020-09-09] MEDS: APIXABAN 5 MG TABLET NGT SCH ×2 (10:01→21:19)
[2020-09-09] MEDS: POLYETHYLENE GLYCOL 3350 119 GM BTL NGT SCH (11:26)
[2020-09-09] MEDS: VASOPRESSIN 40 UNITS in SODIUM CHLORIDE 98 ML IVPB SCH (13:04)
[2020-09-09] MEDS: FENTANYL NS IVPB 500 MCG/100 ML BAG IVPB SCH (13:04)
[2020-09-09] MEDS: CHLORHEXIDINE GLUCONATE 4% CLEANSER FOR DECOLONIZATION TP SCH (21:19)
[2020-09-09] MEDS: ATORVASTATIN CA 10 MG TABLET (FP) NGT SCH (21:19)
[2020-09-09] MEDS: SENNOSIDES 8.8 MG/5 ML BULK BOTTLE NGT SCH (21:20)
[2020-09-10] MEDS: DEXMEDETOMIDINE IN 0.9 % NACL 400 MCG/100 ML VIAL IVPB SCH (03:47)
[2020-09-10] MEDS: BUDESONIDE/FORMETEROL FUMARATE 160/4.5 mcg INHALER IH SCH (04:03)
[2020-09-10] MEDS ORDERED: FENTANYL IVPB 500 MCG/100 ML BAG IVPB ONE (05:51)
[2020-09-10] MEDS: INSULIN (LEVEMIR) 100 UNITS/ML UNITS SQ SCH ×2 (06:41→21:59)
[2020-09-10] MEDS: INSULIN SLIDING SCALE (NOVOLOG) 1 VIAL SQ SCH ×4 (06:47→21:57)
[2020-09-10] MEDS: PROPOFOL 1,000,000 MCG/100 ML VIAL IVPB SCH ×3 (06:47→09:01)
[2020-09-10 08:27] LABS: BASO % 0.3 % (0-2.0); EOS % 0.8 % (0-4.5); HEMATOCRIT 24.4 % (32.4-45.2); HEMOGLOBIN 7.8 GM/dL (10.7-15.3); LYMPH % 3.8 % (8-40); MCH 25.8 pg (25.7-33.7); MCHC 31.9 g/dl (32.0-36.0); MEAN CELL VOLUME 80.9 fl (80-96); MEAN PLT VOLUME 8.8 fl (7.5-11.1); MONO % 1.8 % (3.8-10.2); NEUT % 93.3 % (42.8-82.8); PLATELET COUNT 179 K/MM3 (134-434); RBC 3.01 M/mm3 (3.60-5.2); RDW 14.9 % (11.6-15.6); WHITE BLOOD COUNT 11.5 K/mm3 (4.0-10.0)
[2020-09-10 08:28] LABS: ALBUMIN 1.6 g/dl (3.4-5.0); BLOOD UREA NITROGEN 24.1 mg/dL (7-18)
[2020-09-10 08:29] LABS: CALCIUM 8.5 mg/dL (8.5-10.1)
[2020-09-10 08:30] LABS: MAGNESIUM 1.9 mg/dL (1.8-2.4)
[2020-09-10 08:32] LABS: CREATININE 0.2 mg/dL (0.55-1.3); PHOSPHOROUS 2.6 mg/dL (2.5-4.9)
[2020-09-10 08:34] LABS: BILIRUBIN,TOTAL 0.8 mg/dL (0.2-1); TOT PROT 4.9 g/dl (6.4-8.2)
[2020-09-10 10:05] LABS: ANISOCYTOSIS 0; MACROCYTOSIS 0; PLATELET ESTIMATE NORMAL
[2020-09-10] MEDS ORDERED: PT OWN MED DRAWER 7, Y5N ONE (10:30)
[2020-09-10] MEDS: AMINO ACIDS/PROTEIN HYDROLYS 30 ML LIQUID.PKT NGT SCH (10:37)
[2020-09-10] MEDS: MULTIVIT-MINERALS ORAL LIQUID PO SCH (10:39)
[2020-09-10] MEDS: ASPIRIN 81 MG CHEWABLE TABLETS NGT SCH (10:39)
[2020-09-10] MEDS: APIXABAN 5 MG TABLET NGT SCH ×2 (10:40→21:07)
[2020-09-10] MEDS: DEXAMETHASONE SOD PHOSPHATE 4 MG/1 ML VIAL IVPUSH SCH ×2 (10:40→21:12)
[2020-09-10] MEDS: ZINC SULFATE 220 MG CAPSULE (FP) NGT SCH (10:40)
[2020-09-10] MEDS: POLYETHYLENE GLYCOL 3350 119 GM BTL NGT SCH (10:40)
[2020-09-10] MEDS: ASCORBIC ACID 500 MG/5 ML UNIT DOSE CUP NGT SCH ×2 (10:41→21:08)
[2020-09-10] MEDS: CHOLECALCIFEROL (VIT D SOLUTION) 400 UNIT/1 ML DROPS GT SCH (10:41)
[2020-09-10] MEDS: FAMOTIDINE 40 MG/5 ML ORAL SUSPENSION NGT SCH ×2 (10:41→21:07)
[2020-09-10] MEDS: NOREPINEPHRINE BITARTRATE 8,000 MCG in SODIUM CHLORIDE 492 ML IV SCH (10:42)
[2020-09-10] MEDS: METOPROLOL TARTRATE 5 MG/5 ML VIAL IVPUSH PRN ×3 (13:31→21:15)
[2020-09-10] MEDS: FENTANYL NS IVPB 500 MCG/100 ML BAG IVPB SCH ×3 (15:53→20:00)
[2020-09-10] MEDS: VASOPRESSIN 40 UNITS in SODIUM CHLORIDE 98 ML IVPB SCH (15:53)
[2020-09-10] MEDS: CHLORHEXIDINE GLUCONATE 4% CLEANSER FOR DECOLONIZATION TP SCH (21:08)
[2020-09-10] MEDS: SENNOSIDES 8.8 MG/5 ML BULK BOTTLE NGT SCH (21:08)
[2020-09-10] MEDS: ATORVASTATIN CA 10 MG TABLET (FP) NGT SCH (21:08)
[2020-09-11] MEDS: PROPOFOL 1,000,000 MCG/100 ML VIAL IVPB SCH ×5 (01:01→20:00)
[2020-09-11] MEDS: DEXMEDETOMIDINE IN 0.9 % NACL 400 MCG/100 ML VIAL IVPB SCH (01:01)
[2020-09-11] MEDS: FENTANYL NS IVPB 500 MCG/100 ML BAG IVPB SCH ×3 (04:00→17:59)
[2020-09-11] MEDS: INSULIN (LEVEMIR) 100 UNITS/ML UNITS SQ SCH ×2 (06:30→21:27)
[2020-09-11] MEDS: INSULIN SLIDING SCALE (NOVOLOG) 1 VIAL SQ SCH ×4 (06:31→21:27)
[2020-09-11 07:31] LABS: BASO % 0.1 % (0-2.0); EOS % 4.1 % (0-4.5); HEMATOCRIT 23.8 % (32.4-45.2); HEMOGLOBIN 7.5 GM/dL (10.7-15.3); LYMPH % 3.6 % (8-40); MCH 25.7 pg (25.7-33.7); MCHC 31.6 g/dl (32.0-36.0); MEAN CELL VOLUME 81.4 fl (80-96); MEAN PLT VOLUME 9.6 fl (7.5-11.1); NEUT % 91.2 % (42.8-82.8); PLATELET COUNT 107 K/MM3 (134-434); RBC 2.92 M/mm3 (3.60-5.2); RDW 15.7 % (11.6-15.6); WHITE BLOOD COUNT 8.8 K/mm3 (4.0-10.0)
[2020-09-11 07:43] LABS: ALBUMIN 1.5 g/dl (3.4-5.0); CALCIUM 8.2 mg/dL (8.5-10.1)
[2020-09-11 07:44] LABS: MAGNESIUM 2.1 mg/dL (1.8-2.4)
[2020-09-11 07:46] LABS: PHOSPHOROUS 3.2 mg/dL (2.5-4.9)
[2020-09-11 07:47] LABS: CREATININE 0.3 mg/dL (0.55-1.3)
[2020-09-11 07:48] LABS: BILIRUBIN,TOTAL 0.8 mg/dL (0.2-1); TOT PROT 5.2 g/dl (6.4-8.2)
[2020-09-11] MEDS: AMINO ACIDS/PROTEIN HYDROLYS 30 ML LIQUID.PKT NGT SCH (09:16)
[2020-09-11] MEDS: ZINC SULFATE 220 MG CAPSULE (FP) NGT SCH (09:16)
[2020-09-11] MEDS: ASPIRIN 81 MG CHEWABLE TABLETS NGT SCH (09:16)
[2020-09-11] MEDS: DEXAMETHASONE SOD PHOSPHATE 4 MG/1 ML VIAL IVPUSH SCH ×2 (09:16→21:20)
[2020-09-11] MEDS: APIXABAN 5 MG TABLET NGT SCH ×2 (09:16→21:20)
[2020-09-11] MEDS: CHOLECALCIFEROL (VIT D SOLUTION) 400 UNIT/1 ML DROPS GT SCH (09:17)
[2020-09-11] MEDS: MULTIVIT-MINERALS ORAL LIQUID PO SCH (09:17)
[2020-09-11] MEDS: FAMOTIDINE 40 MG/5 ML ORAL SUSPENSION NGT SCH ×2 (09:18→21:22)
[2020-09-11] MEDS: ASCORBIC ACID 500 MG/5 ML UNIT DOSE CUP NGT SCH ×2 (09:18→21:22)
[2020-09-11] MEDS: POLYETHYLENE GLYCOL 3350 119 GM BTL NGT SCH (09:19)
[2020-09-11 11:05] LABS: ANISOCYTOSIS 1+; MACROCYTOSIS 1+; PLATELET ESTIMATE DECREASED
[2020-09-11] MEDS: NOREPINEPHRINE BITARTRATE 8,000 MCG in SODIUM CHLORIDE 492 ML IV SCH ×2 (12:11→21:00)
[2020-09-11 16:42] VITALS: BMI 33.0
[2020-09-11] MEDS: VASOPRESSIN 40 UNITS in SODIUM CHLORIDE 98 ML IVPB SCH (17:29)
[2020-09-11] MEDS: ATORVASTATIN CA 10 MG TABLET (FP) NGT SCH (21:20)
[2020-09-11] MEDS: SENNOSIDES 8.8 MG/5 ML BULK BOTTLE NGT SCH (21:21)
[2020-09-11] MEDS: CHLORHEXIDINE GLUCONATE 4% CLEANSER FOR DECOLONIZATION TP SCH (21:21)
[2020-09-12] MEDS: DEXMEDETOMIDINE IN 0.9 % NACL 400 MCG/100 ML VIAL IVPB SCH (01:16)
[2020-09-12] MEDS: PROPOFOL 1,000,000 MCG/100 ML VIAL IVPB SCH ×4 (01:17→23:41)
[2020-09-12] MEDS: FENTANYL NS IVPB 500 MCG/100 ML BAG IVPB SCH ×4 (02:04→23:42)
[2020-09-12] MEDS: INSULIN SLIDING SCALE (NOVOLOG) 1 VIAL SQ SCH ×4 (06:23→22:00)
[2020-09-12] MEDS: INSULIN (LEVEMIR) 100 UNITS/ML UNITS SQ SCH ×2 (06:24→21:26)
[2020-09-12 07:07] LABS: EOS % 2.4 % (0-4.5); LYMPH % 4.9 % (8-40); MCH 26.4 pg (25.7-33.7); MEAN CELL VOLUME 82.6 fl (80-96); MEAN PLT VOLUME 9.8 fl (7.5-11.1); MONO % 1.4 % (3.8-10.2); NEUT % 91.3 % (42.8-82.8); PLATELET COUNT 73 K/MM3 (134-434); RBC 2.66 M/mm3 (3.60-5.2); RDW 15.6 % (11.6-15.6); WHITE BLOOD COUNT 7.9 K/mm3 (4.0-10.0)
[2020-09-12 07:19] LABS: CHLORIDE 84 mmol/L (98-107); SODIUM 130 mmol/L (136-145)
[2020-09-12 07:32] LABS: ALBUMIN 1.4 g/dl (3.4-5.0); ANION GAP 4 MMOL/L (8-16); BLOOD UREA NITROGEN 29.2 mg/dL (7-18); CO2 42 mmol/L (21-32); GLUCOSE,RANDOM 160 mg/dL (74-106); MAGNESIUM 2.2 mg/dL (1.8-2.4)
[2020-09-12 07:35] LABS: CREATININE 0.2 mg/dL (0.55-1.3); SGOT/AST 17 U/L (15-37); SGPT/ALT 28 U/L (13-61)
[2020-09-12 07:36] LABS: BILIRUBIN,TOTAL 0.7 mg/dL (0.2-1); PHOSPHOROUS 2.1 mg/dL (2.5-4.9)
[2020-09-12 07:38] LABS: ALK PHOS 71 U/L (45-117)
[2020-09-12] MEDS ORDERED: PT OWN MED DRAWER 7, Y5N ONE ×2 (07:54→20:43)
[2020-09-12] MEDS: AMINO ACIDS/PROTEIN HYDROLYS 30 ML LIQUID.PKT NGT SCH (08:54)
[2020-09-12] MEDS: APIXABAN 5 MG TABLET NGT SCH ×2 (09:25→21:26)
[2020-09-12] MEDS: ASPIRIN 81 MG CHEWABLE TABLETS NGT SCH (09:25)
[2020-09-12] MEDS: ZINC SULFATE 220 MG CAPSULE (FP) NGT SCH (09:25)
[2020-09-12] MEDS: FAMOTIDINE 40 MG/5 ML ORAL SUSPENSION NGT SCH ×2 (09:26→21:27)
[2020-09-12] MEDS: DEXAMETHASONE SOD PHOSPHATE 4 MG/1 ML VIAL IVPUSH SCH ×2 (09:26→21:25)
[2020-09-12] MEDS: MULTIVIT-MINERALS ORAL LIQUID PO SCH (09:27)
[2020-09-12] MEDS: ASCORBIC ACID 500 MG/5 ML UNIT DOSE CUP NGT SCH ×2 (09:27→21:27)
[2020-09-12] MEDS: CHOLECALCIFEROL (VIT D SOLUTION) 400 UNIT/1 ML DROPS GT SCH (09:27)
[2020-09-12] MEDS: VASOPRESSIN 40 UNITS in SODIUM CHLORIDE 98 ML IVPB SCH ×2 (09:28→17:20)
[2020-09-12] MEDS: POLYETHYLENE GLYCOL 3350 119 GM BTL NGT SCH (09:28)
[2020-09-12 10:23] LABS: ANISOCYTOSIS 1+; MACROCYTOSIS 1+; PLATELET ESTIMATE DECREASED
[2020-09-12] MEDS: NOREPINEPHRINE BITARTRATE 8,000 MCG in SODIUM CHLORIDE 492 ML IV SCH (16:27)
[2020-09-12] MEDS: ATORVASTATIN CA 10 MG TABLET (FP) NGT SCH (21:26)
[2020-09-12] MEDS: CHLORHEXIDINE GLUCONATE 4% CLEANSER FOR DECOLONIZATION TP SCH (21:26)
[2020-09-12] MEDS: SENNOSIDES 8.8 MG/5 ML BULK BOTTLE NGT SCH (21:27)
[2020-09-12] MEDS: METOPROLOL TARTRATE 5 MG/5 ML VIAL IVPUSH PRN (23:41)
[2020-09-13] MEDS ORDERED: AMIODARONE IN DEXTROSE,ISO-OSM 150 MG/100 ML BAG ONE (01:02)
[2020-09-13] MEDS ORDERED: AMIODARONE IN DEXTROSE,ISO-OSM 150 MG/100 ML BAG IVPB ONE (01:15)
[2020-09-13] MEDS ORDERED: AMIODARONE HCL INJECTION 450 MG in DEXTROSE 5%-WATER - 241 ML IVPB ONE (01:44)
[2020-09-13] MEDS ORDERED: AMIODARONE IN DEXTROSE,ISO-OSM 360 MG/200 ML BAG IVPB ONE (02:00)
[2020-09-13] MEDS ORDERED: FUROSEMIDE 40 MG/4 ML INJECTABLE VIAL IVPUSH ONE (03:06)
[2020-09-13] MEDS: INSULIN (LEVEMIR) 100 UNITS/ML UNITS SQ SCH (06:18)
[2020-09-13] MEDS: INSULIN SLIDING SCALE (NOVOLOG) 1 VIAL SQ SCH ×4 (06:27→21:31)
[2020-09-13 06:47] LABS: ARTERIAL BLD GAS O2 SATURATION 89.7 mmHg (95-98); ARTERIAL BLOOD GAS BASE EXCESS 10.5 mmol/L (-2-2); ARTERIAL BLOOD GAS PO2 68.7 mmHg (80-100)
[2020-09-13 06:49] LABS: ALLENS TEST POSITIVE
[2020-09-13 06:50] LABS: VENT MODE A/C; VENT RATE 26
[2020-09-13 07:05] LABS: HEMATOCRIT 23.5 % (32.4-45.2); MCH 27.7 pg (25.7-33.7); MCHC 33.9 g/dl (32.0-36.0); MEAN CELL VOLUME 81.9 fl (80-96); MEAN PLT VOLUME 10.4 fl (7.5-11.1); PLATELET COUNT 51 K/MM3 (134-434); RBC 2.87 M/mm3 (3.60-5.2); RDW 15.8 % (11.6-15.6); WHITE BLOOD COUNT 12.6 K/mm3 (4.0-10.0)
[2020-09-13 07:22] LABS: CALCIUM 7.8 mg/dL (8.5-10.1)
[2020-09-13 07:23] LABS: BLOOD UREA NITROGEN 29.6 mg/dL (7-18)
[2020-09-13 07:26] LABS: CREATININE 0.4 mg/dL (0.55-1.3); PHOSPHOROUS 1.7 mg/dL (2.5-4.9)
[2020-09-13] MEDS ORDERED: AMIODARONE IN DEXTROSE,ISO-OSM 360 MG/200 ML BAG IVPB SCH (08:00)
[2020-09-13] MEDS ORDERED: POTASSIUM PHOSPHATE 30 MM in SODIUM CHLORIDE 500 ML IVPB ONE (08:15)
[2020-09-13] MEDS: KCL 10 MEQ IVPB 10 MEQ/100 ML INFUS.BAG IVPB SCH ×2 (08:30→09:00)
[2020-09-13] MEDS: AMINO ACIDS/PROTEIN HYDROLYS 30 ML LIQUID.PKT NGT SCH (08:40)
[2020-09-13] MEDS: ASPIRIN 81 MG CHEWABLE TABLETS NGT SCH (09:14)
[2020-09-13] MEDS: DEXAMETHASONE SOD PHOSPHATE 4 MG/1 ML VIAL IVPUSH SCH ×2 (09:14→21:29)
[2020-09-13] MEDS: PROPOFOL 1,000,000 MCG/100 ML VIAL IVPB SCH (09:16)
[2020-09-13] MEDS: ZINC SULFATE 220 MG CAPSULE (FP) NGT SCH (09:18)
[2020-09-13] MEDS: POLYETHYLENE GLYCOL 3350 119 GM BTL NGT SCH (09:19)
[2020-09-13] MEDS: APIXABAN 5 MG TABLET NGT SCH ×2 (09:19→21:29)
[2020-09-13] MEDS ORDERED: PT OWN MED DRAWER 7, Y5N ONE ×3 (09:22→20:11)
[2020-09-13] MEDS: FAMOTIDINE 40 MG/5 ML ORAL SUSPENSION NGT SCH ×2 (09:23→21:31)
[2020-09-13] MEDS: CHOLECALCIFEROL (VIT D SOLUTION) 400 UNIT/1 ML DROPS GT SCH (09:23)
[2020-09-13] MEDS: MULTIVIT-MINERALS ORAL LIQUID PO SCH (09:24)
[2020-09-13] MEDS: ASCORBIC ACID 500 MG/5 ML UNIT DOSE CUP NGT SCH ×2 (09:24→21:31)
[2020-09-13] MEDS: FENTANYL NS IVPB 500 MCG/100 ML BAG IVPB SCH ×2 (09:25→18:06)
[2020-09-13] MEDS: NOREPINEPHRINE BITARTRATE 8,000 MCG in SODIUM CHLORIDE 492 ML IV SCH (18:04)
[2020-09-13] MEDS: VASOPRESSIN 40 UNITS in SODIUM CHLORIDE 98 ML IVPB SCH (18:06)
[2020-09-13] MEDS ORDERED: PIPERACILLIN/TAZOBACTAM 3.375 GM VIAL IVPB ONE (20:11)
[2020-09-13] MEDS ORDERED: DEXTROSE 5%-WATER - 50 ML IVPB ONE (20:12)
[2020-09-13] MEDS ORDERED: PIPERACILLIN/TAZOB 3.375 GM 3.375 GM in DEXTROSE 5%-WATER - 50 ML IVPB SCH (21:00)
[2020-09-13] MEDS: CHLORHEXIDINE GLUCONATE 4% CLEANSER FOR DECOLONIZATION TP SCH (21:29)
[2020-09-13] MEDS: PIPERACILLIN/TAZOB 3.375 GM 3.375 GM in DEXTROSE 5%-WATER - 50 ML IVPB SCH (21:29)
[2020-09-13] MEDS: SENNOSIDES 8.8 MG/5 ML BULK BOTTLE NGT SCH (21:31)
[2020-09-13] MEDS: ATORVASTATIN CA 10 MG TABLET (FP) NGT SCH (21:31)
[2020-09-14] MEDS: INSULIN (LEVEMIR) 100 UNITS/ML UNITS SQ SCH ×3 (00:56→22:50)
[2020-09-14] MEDS ORDERED: DEXTROSE 5%-WATER - 50 ML IVPB ONE ×2 (01:15→11:27)
[2020-09-14] MEDS ORDERED: PIPERACILLIN/TAZOBACTAM 3.375 GM VIAL IVPB ONE ×2 (01:15→11:27)
[2020-09-14] MEDS: PIPERACILLIN/TAZOB 3.375 GM 3.375 GM in DEXTROSE 5%-WATER - 50 ML IVPB SCH ×2 (01:31→11:29)
[2020-09-14] MEDS ORDERED: PIPERACILLIN/TAZOB 3.375 GM 3.375 GM in DEXTROSE 5%-WATER - 50 ML IVPB SCH (02:00)
[2020-09-14] MEDS: INSULIN SLIDING SCALE (NOVOLOG) 1 VIAL SQ SCH ×4 (06:09→23:00)
[2020-09-14] MEDS: NOREPINEPHRINE BITARTRATE 8,000 MCG in SODIUM CHLORIDE 492 ML IV SCH (07:00)
[2020-09-14 07:43] LABS: ALBUMIN 1.3 g/dl (3.4-5.0); BLOOD UREA NITROGEN 29.8 mg/dL (7-18); CALCIUM 7.5 mg/dL (8.5-10.1)
[2020-09-14 07:46] LABS: CREATININE 0.3 mg/dL (0.55-1.3)
[2020-09-14 07:47] LABS: BILIRUBIN,TOTAL 1.6 mg/dL (0.2-1); PHOSPHOROUS 4.3 mg/dL (2.5-4.9)
[2020-09-14] MEDS ORDERED: PT OWN MED DRAWER 7, Y5N ONE ×2 (08:07→12:50)
[2020-09-14 08:08] LABS: EOS % 7.3 % (0-4.5); HEMATOCRIT 21.3 % (32.4-45.2); HEMOGLOBIN 7.2 GM/dL (10.7-15.3); MCHC 33.9 g/dl (32.0-36.0); MEAN CELL VOLUME 82.6 fl (80-96); MEAN PLT VOLUME 9.8 fl (7.5-11.1); MONO % 1.6 % (3.8-10.2); NEUT % 89.1 % (42.8-82.8); RBC 2.58 M/mm3 (3.60-5.2); RDW 15.9 % (11.6-15.6); WHITE BLOOD COUNT 9.9 K/mm3 (4.0-10.0)
[2020-09-14 08:44] LABS: PLATELET COUNT 9 K/MM3 (134-434)
[2020-09-14] MEDS: AMINO ACIDS/PROTEIN HYDROLYS 30 ML LIQUID.PKT NGT SCH (08:55)
[2020-09-14] MEDS: MULTIVIT-MINERALS ORAL LIQUID PO SCH (10:07)
[2020-09-14] MEDS: CHOLECALCIFEROL (VIT D SOLUTION) 400 UNIT/1 ML DROPS GT SCH (10:08)
[2020-09-14] MEDS: FAMOTIDINE 40 MG/5 ML ORAL SUSPENSION NGT SCH ×2 (10:09→22:13)
[2020-09-14] MEDS: DEXAMETHASONE SOD PHOSPHATE 4 MG/1 ML VIAL IVPUSH SCH ×2 (10:10→22:12)
[2020-09-14] MEDS: ASPIRIN 81 MG CHEWABLE TABLETS NGT SCH (10:10)
[2020-09-14] MEDS: POLYETHYLENE GLYCOL 3350 119 GM BTL NGT SCH (10:26)
[2020-09-14] MEDS: ZINC SULFATE 220 MG CAPSULE (FP) NGT SCH (10:26)
[2020-09-14] MEDS ORDERED: AMIODARONE IN DEXTROSE,ISO-OSM 360 MG/200 ML BAG ONE (10:27)
[2020-09-14] MEDS: ASCORBIC ACID 500 MG/5 ML UNIT DOSE CUP NGT SCH ×2 (11:07→22:13)
[2020-09-14] MEDS: PROPOFOL 1,000,000 MCG/100 ML VIAL IVPB SCH (11:12)
[2020-09-14] MEDS: FENTANYL NS IVPB 500 MCG/100 ML BAG IVPB SCH (11:30)
[2020-09-14] MEDS ORDERED: FENTANYL NS IVPB 500 MCG/100 ML BAG IVPB ONE (14:03)
[2020-09-14 15:07] LABS: PLATELET ESTIMATE MOD DECREASED
[2020-09-14 15:08] LABS: ROULEAU 1+
[2020-09-14] MEDS ORDERED: DEXTROSE 5%-WATER 100 ML IVPB ONE (17:01)
[2020-09-14] MEDS ORDERED: PIPERACILLIN/TAZOBACTAM 4.5 GM VIAL IVPB ONE (17:01)
[2020-09-14] MEDS: VASOPRESSIN 40 UNITS in SODIUM CHLORIDE 98 ML IVPB SCH (17:31)
[2020-09-14] MEDS: PIPERACILLIN/TAZOB 4.5 GM 4.5 GM in DEXTROSE 5%-WATER 100 ML IVPB SCH (17:33)
[2020-09-14] MEDS: ATORVASTATIN CA 10 MG TABLET (FP) NGT SCH (22:12)
[2020-09-14] MEDS: SENNOSIDES 8.8 MG/5 ML BULK BOTTLE NGT SCH (22:13)
[2020-09-14] MEDS: CHLORHEXIDINE GLUCONATE 4% CLEANSER FOR DECOLONIZATION TP SCH (22:13)
[2020-09-15] MEDS ORDERED: FENTANYL NS IVPB 500 MCG/100 ML BAG IVPB ONE (00:24)
[2020-09-15] MEDS ORDERED: DEXTROSE 5%-WATER 100 ML IVPB ONE (01:08)
[2020-09-15] MEDS ORDERED: PIPERACILLIN/TAZOBACTAM 4.5 GM VIAL IVPB ONE (01:08)
[2020-09-15] MEDS: PIPERACILLIN/TAZOB 4.5 GM 4.5 GM in DEXTROSE 5%-WATER 100 ML IVPB SCH (01:22)
[2020-09-15 02:01] VITALS: TEMP 99.9
[2020-09-15 04:29] VITALS: BP 83/32; PULSE 88
[2020-09-15] MEDS ORDERED: SODIUM CHLORIDE 500 ML IV STA (05:04)
== END 2020-09-15 05:45 | disposition expired | DRG 207 ==
LOC: JER 18:16 → JERBED 21:41 → J4W 08-07 03:05 → JICU 08-16 19:27
PROVIDERS: ADMIT Internal Medicine; ATTEND Internal Medicine Pulmonary Disease
PROC: 8E0ZXY6 Isolation (ICD-10-PCS; 2020-08-06)
PROC: XW033E5 Introduction of Remdesivir Anti-infective into Peripheral Vein, Percutaneous Approach, New Technology Group 5 (ICD-10-PCS; 2020-08-08)
PROC: XW13325 Transfusion of Convalescent Plasma (Nonautologous) into Peripheral Vein, Percutaneous Approach, New Technology Group 5 (ICD-10-PCS; 2020-08-08)
PROC: 5A1955Z Respiratory Ventilation, Greater than 96 Consecutive Hours (ICD-10-PCS; principal; 2020-08-21)
PROC: 0BH17EZ Insertion of Endotracheal Airway into Trachea, Via Natural or Artificial Opening (ICD-10-PCS; 2020-08-21)
PROC: 3E0G76Z Introduction of Nutritional Substance into Upper GI, Via Natural or Artificial Opening (ICD-10-PCS; 2020-08-21)
PROC: 0DH67UZ Insertion of Feeding Device into Stomach, Via Natural or Artificial Opening (ICD-10-PCS; 2020-08-21)
PROC: 03HY32Z Insertion of Monitoring Device into Upper Artery, Percutaneous Approach (ICD-10-PCS; 2020-08-21)
PROC: 4A133B1 Monitoring of Arterial Pressure, Peripheral, Percutaneous Approach (ICD-10-PCS; 2020-08-21)
PROC: 02H633Z Insertion of Infusion Device into Right Atrium, Percutaneous Approach (ICD-10-PCS; 2020-08-21)
PROC: B548ZZA Ultrasonography of Superior Vena Cava, Guidance (ICD-10-PCS; 2020-08-21)
PROC: 02HV33Z Insertion of Infusion Device into Superior Vena Cava, Percutaneous Approach (ICD-10-PCS; 2020-08-28)
PROC: B548ZZA Ultrasonography of Superior Vena Cava, Guidance (ICD-10-PCS; 2020-08-28)
PROC: 05HM33Z Insertion of Infusion Device into Right Internal Jugular Vein, Percutaneous Approach (ICD-10-PCS; 2020-09-05)
PROC: B543ZZA Ultrasonography of Right Jugular Veins, Guidance (ICD-10-PCS; 2020-09-05)
DX: U07.1 COVID-19 (principal); J12.89 Other viral pneumonia; A41.89 Other specified sepsis; R65.20 Severe sepsis without septic shock; J80 Acute respiratory distress syndrome; E43 Unspecified severe protein-calorie malnutrition; N39.0 Urinary tract infection, site not specified; J93.83 Other pneumothorax; E87.1 Hypo-osmolality and hyponatremia; I48.0 Paroxysmal atrial fibrillation; J45.909 Unspecified asthma, uncomplicated; J98.2 Interstitial emphysema; E11.9 Type 2 diabetes mellitus without complications; Z79.84 Long term (current) use of oral hypoglycemic drugs; E88.09 Other disorders of plasma-protein metabolism, not elsewhere classified; E66.9 Obesity, unspecified; Z68.33 Body mass index [BMI] 33.0-33.9, adult; E78.5 Hyperlipidemia, unspecified
CPT/HCPCS: 36415; 36430; 36600; 71045-TC-FY; 71250-TC; 74176-TC; 80048; 80053; 81003; 82248; 82272; 82550; 82553; 82565; 82728; 82803; 82962; 83605; 83615; 83735; 84100; 84300; 84484; 85025; 85027; 85379; 85610; 85651; 85730; 86140; 86850; 86900; 86901; 87040; 87086; 87186; 87804; 87899; 93005; 93010; 94002; 94660; 99285-25; C9803; J0131; J0282; J1100; P9017; P9034; U0003